=== PATIENT | female | born 1960 | race Caucasian/White ===

== ENCOUNTER 2016-10-04 13:33 | Emergency (ER) | payer BC ==
[2016-10-04] MEDS ORDERED: Famotidine IV* 10 MG/ML 2 ML (20 mg) IV ONE (14:13)
[2016-10-04] MEDS ORDERED: LORazepam INJ* 2 MG/ML 1 ML VIAL IV PUSH ONE (14:14)
[2016-10-04 14:35] LABS: Hematocrit 45 % (35-47); Hemoglobin 14.9 g/dl (12.0-16.0); Mean Corpuscular HGB Conc 33 g/dl (31-36); Mean Corpuscular Hemoglobin 30 pg (27-31); Mean Corpuscular Volume 91 fL (80-97); Mean Platelet Volume 7 um3 (7.4-10.4); Red Blood Count 4.99 10^6/ul (4.0-5.4); Red Cell Distribution Width 14 % (10.5-15); White Blood Count 8.5 10^3/ul (3.5-10.8)
--- NOTE | 2016-10-04 14:39 | RAD ---
INDICATION: Chest pain COMPARISON: March 01, 2007 TECHNIQUE: An AP portable view obtained at 1425 hours is submitted. FINDINGS: Bones/Soft Tissues: There are no acute bony findings. Cardiomediastinal: The cardiomediastinal silhouette is normal. Lungs: There are no infiltrates. Pleura: There are no pleural effusions. Other: None IMPRESSION: NO ACTIVE DISEASE.
[2016-10-04 14:49] LABS: Albumin 4.2 g/dL (3.2-5.2); BUN/Creatinine Ratio 14.6 (8-20); Calcium 9.3 mg/dL (8.6-10.3); EGFR African American 93.8 (>60); EGFR Non-African American 72.9 (>60); Globulin 3.2 g/dL (2-4); Potassium 3.8 mmol/L (3.5-5.0); Total Bilirubin 0.5 mg/dL (0.2-1.0); Total Protein 7.4 g/dL (6.4-8.9)
[2016-10-04 15:02] LABS: TSH (Thyroid Stimulating Horm) 1.45 mcIU/mL (0.34-5.60)
--- NOTE | 2016-10-04 15:45 | ED ---
Andrew Zheng Billy, scribed for Ambrocio Peoples MD on 10/04/16 at 1417 . HPI Chest Pain - HPI Summary HPI Summary: Patient is a 55 year-old female coming to [facility] presenting with constant midsternal chest pressure since this morning. Severity 310. She also reports chills, rapid palpitations, lightheadedness, headache, general weakness, and SOB. She also reports a cough, which she states is related to prior sinus congestion. She denies any nausea, vomiting, or diaphoresis. She states that she has had anxiety and life stressors since [place]-time. - History of Current Complaint Chief Complaint: EDChestPainROMI Time Seen by Provider: 10/04/16 14:00 Hx Obtained From: Patient Onset/Duration: Started Hours Ago, Still Present Timing: Constant Initial Severity: Moderate Current Severity: Moderate Pain Intensity: 3 Pain Scale Used: 0-10 Numeric Chest Pain Location: Mid Sternal Chest Pain Radiates: No Character: Pressure/Squeezing Aggravating Factor(s): Nothing Alleviating Factor(s): Nothing Associated Signs and Symptoms: Positive: Anxiety, Recent Stress, Headaches, Weakness, Shortness of Breath, Chills, Lightheadedness, Palpitations, Cough, Sinus Discomfrot. Negative: Diaphoresis, Nausea, Vomiting - Allergy/Home Medications Allergies/Adverse Reactions: Allergies Allergy/AdvReac Type Severity Reaction Status Date / Time Doxycycline Allergy Rash Verified 10/04/16 14:55 Home Medications: Home Medications Escitalopram Oxalate [Lexapro] 10 mg PO 10/04/16 [History] PMH/Surg Hx/FS Hx/Imm Hx Infectious Disease History: No Infectious Disease History: Denies: Traveled Outside the [place] in Last 30 Days Review of Systems Positive: Chills. Negative: Skin Diaphoresis Positive: Other - sinus congestion Positive: Palpitations, Chest Pain Positive: Shortness Of Breath, Cough Negative: Vomiting, Nausea Neurological: Other - lightheaded Positive: Headache, Weakness Positive: Anxious, Other - stress All Other Systems Reviewed And Are Negative: Yes Physical Exam - Summary Physical Exam Summary: VITAL SIGNS: Reviewed. GENERAL: Patient is a well developed and nourished anxious female. Patient is not in any acute respiratory distress. HEAD AND FACE: No signs of trauma. No ecchymosis, hematomas or skull depressions. No sinus tenderness. EYES: PERRLA, EOMI x 2, No injected conjunctiva, no nystagmus. EARS: Hearing grossly intact. Ear canals and tympanic membranes are within normal limits. MOUTH: Oropharynx within normal limits. NECK: Supple, trachea is midline, no adenopathy, no JVD, no carotid bruit, no c- spine tenderness, neck with full ROM. CHEST: Symmetric, no tenderness at palpation LUNGS: Clear to auscultation bilaterally. No wheezing or crackles. CVS: Regular rate and rhythm, S1 and S2 present, no murmurs or gallops appreciated. ABDOMEN: Soft, non-tender. No signs of distention. No rebound no guarding, and no masses palpated. Bowel sounds are normal. EXTREMITIES: FROM in all major joints, no edema, no cyanosis or clubbing. NEURO: Alert and oriented x 3. No acute neurological deficits. Speech is normal and follows commands. SKIN: Dry and warm Triage Information Reviewed: Yes Vital Signs On Initial Exam: Initial Vitals Temp Pulse Resp BP Pulse Ox 98.8 F 121 20 187/102 100 10/04/16 13:38 10/04/16 13:38 10/04/16 13:38 10/04/16 13:38 10/04/16 13:38 Vital Signs Reviewed: Yes Diagnostics - Vital Signs Vital Signs Temp Pulse Resp BP Pulse Ox 10/04/16 13:38 98.8 F 121 20 187/102 100 - Laboratory Result Diagrams: 10/04/16 14:03 10/04/16 14:03 Lab Statement: Any lab studies that have been ordered have been reviewed, and results considered in the medical decision making process. - Radiology CXR Xray Interpretation: No Acute Changes Radiology Interpretation Completed By: Radiologist - EKG 1343 EKG Interpretation: NSR 97 bpm, no ST elevations, Q-wave in III and aVF Re-Evaluation - Re-Evaluation First Eval Re-Evaluation Time: 15:42 Change: Improved Chest Pain Course/Dx - Course Assessment/Plan: Patient is a 55 year-old female coming to [facility] presenting with constant midsternal chest pressure since this morning. Severity 3/10. She also reports chills, rapid palpitations, lightheadedness, headache, general weakness, and SOB. She also reports a cough, which she states is related to prior sinus congestion. She denies any nausea, vomiting, or diaphoresis. She states that she has had anxiety and life stressors since [place]-time. She also reports she has reflux today. Initially she was given Pepcid for reflux and Ativan for anxiety. Blood work is also found to be wnl. D dimer was less than 200 therefore I have no suspicion for a DVT. Troponin is 0.00. Since patient has no comorbidities troponin is 0.0 I have no suspicion for ACS. CXR shows no acute findings. Because the patient has no significant comorbidities and no family history of cardiovascular disease the patient will be discharged home with follow up of PMD. I discussed all the findings and test results with the patient. Patient was instructed to return to the emergency room immediately if any of the symptoms return or worsens. Patient understands and agrees. Plan of care was discussed with the patient and patient understands and agrees. All questions were answered at patient satisfaction. There were no further complaints or concerns. PE before discharge: CVS: S1 and S2 present. No murmurs appreciated. Abdominal exam before discharge: Soft, non-tender. No signs of distention. No rebound no guarding, and no masses palpated. Bowel sounds are normal. Patient is alert and oriented x 3. Patient is hemodynamically stable. - Chest Pain Differential Diagnosis/HQI/PQRI: ACS, Angina, CHF, Chest Wall, GI Disease, Other : - Anxiety - Diagnoses Provider Diagnoses: Chest pain, Anxiety Discharge - Discharge Plan Condition: Stable Disposition: HOME Prescriptions: hydrOXYzine HCL TAB* [Atarax TAB*] 25 mg PO TID PRN #30 tab PRN Reason: Anxiety The documentation as recorded by the Andrew santacruz Billy accurately reflects the service I personally performed and the decisions made by me, Ambrocio Peoples MD.
[2016-10-04 16:02] VITALS: BP 143/87
== END 2016-10-04 16:02 | disposition home or self-care (01) ==
LOC: ED 13:33
DX: R07.9 Chest pain, unspecified (principal); R00.2 Palpitations; R06.02 Shortness of breath; R05 Cough; R51 Headache; F41.9 Anxiety disorder, unspecified
CPT/HCPCS: 36415; 71010; 80053; 82553; 83880; 84443; 84484; 85025; 85379; 93005; 96365; 96375; 99282; J2060

== ENCOUNTER 2017-08-19 09:00 | Emergency (ER) | payer SELFPAY ==
[2017-08-19 09:12] VITALS: BP 138/84
[2017-08-19] MEDS ORDERED: Albuterol/Ipratropium NEB.SOL* Albuterol 2.5 MG/Ipratropium 0.5 MG 3 ML INH ONE (09:50)
--- NOTE | 2017-08-19 10:28 | RAD ---
INDICATION: Cough, chest pain, shortness of breath. Elevated BP. COMPARISON: October 04, 2016 through February 14, 2003 TECHNIQUE: Dual energy PA and routine lateral views of the chest were obtained. REPORT: Indeterminant 1.3 cm maximum dimension irregularly margined density at the LEFT lower lung zone new compared with the prior exams. Elevated lung volumes and both diffuse mild prominence of the interstitial markings and patchy rarefaction of the mid to upper lung zone interstitial markings. Negative for pleural effusion or pneumothorax. Negative for cardiomegaly. Unremarkable central pulmonary vasculature. Moderately tortuous descending thoracic aorta. RIGHT epicardial fat pad noted. IMPRESSION: Stigmata of obstructive lung disease. No acute pulmonary or cardiac process evident. Indeterminant radiographic nodule at the LEFT lung base. Consider CT with contrast if clinically feasible for further assessment.
[2017-08-19] MEDS ORDERED: predniSONE TAB* 20 MG PO ONE (10:36)
--- NOTE | 2017-08-19 10:44 | UC ---
Pritesh Zheng Benjamin, scribed for Ambrocio Reyes MD on 08/19/17 at 0953 . Respiratory Complaint HPI - HPI Summary HPI Summary: 56yo female c/o coughing for 3 days. Cough sometimes brings up yellow/green sputum. Pt reports labored breathing, wheezing, and feels tired and fatigued. Also have runny nose and some mild neck and back muscle aches, but denies any fever. No hx of COPD. FHX of DM and asthma. Pt is a smoker. - History of Current Complaint Chief Complaint: UCGeneralIllness Stated Complaint: COUGH Time Seen by Provider: 08/19/17 09:33 Hx Obtained From: Patient Onset/Duration: Sudden Onset, Lasting Days - 3 days, Still Present Timing: Constant Severity Initially: Mild Severity Currently: Mild Pain Intensity: 0 Pain Scale Used: 0-10 Numeric Character: Cough: Productive, Sputum Description: - yellow/green Alleviating Factors: Nothing Associated Signs And Symptoms: Positive: Wheezing. Negative: Fever - Allergies/Home Medications Allergies/Adverse Reactions: Allergies Allergy/AdvReac Type Severity Reaction Status Date / Time Doxycycline Allergy Rash Verified 08/19/17 09:03 Home Medications: Home Medications Atenolol TAB* [Tenormin TAB* 50 MG] 50 mg PO DAILY 08/19/17 [History Confirmed 08/19/17] Pseudoephedrine-Guaifenesin [Mucinex D 60-600 mg] 1 tab PO 08/19/17 [History] PMH/Surg Hx/FS Hx/Imm Hx Cardiovascular History: Hypertension - Surgical History Surgical History: None - Family History Known Family History: Positive: Diabetes, Respiratory Disease - asthma - Social History Occupation: Employed Full-time Alcohol Use: Occasionally Substance Use Type: None Smoking Status (MU): Light Every Day Tobacco Smoker Amount Used/How Often: 6cig/ day - Immunization History Most Recent Influenza Vaccination: 2017 Review of Systems Constitutional: Fatigue Skin: Negative Eyes: Negative ENT: Nasal Discharge Respiratory: Shortness Of Breath, Cough Cardiovascular: Negative Gastrointestinal: Negative Genitourinary: Negative Motor: Negative Neurovascular: Negative Musculoskeletal: Negative Neurological: Negative Psychological: Negative All Other Systems Reviewed And Are Negative: Yes Physical Exam Triage Information Reviewed: Yes Appearance: Well-Appearing, No Pain Distress Vital Signs: Initial Vital Signs Temp 98.4 F 08/19/17 09:05 Pulse 73 08/19/17 09:05 Resp 16 08/19/17 09:05 BP 138/84 08/19/17 09:05 Pulse Ox 100 08/19/17 09:05 Vital Signs Reviewed: Yes ENT: Positive: Nasal congestion, TMs normal Neck: Positive: Supple Respiratory: Positive: Wheezing - right upper lobe Cardiovascular: Positive: RRR, No Murmur Abdomen Description: Positive: Nontender Musculoskeletal: Positive: Strength Intact, ROM Intact Neurological Exam: Normal Psychological Exam: Normal Skin Exam: Normal UC Diagnostic Evaluation - Laboratory O2 Sat by Pulse Oximetry: 100 - Radiology Xray Interpretation: No Acute Changes - IMPRESSION: Stigmata of obstructive lung disease. No acute pulmonary or cardiac process Radiology Interpretation Completed By: Radiologist - ED physician has reviewed this radiology report and agrees. Respiratory Course/Dx - Course Course Of Treatment: Reviewed pts medication and allergy lists. High Blood pressure noted. Discussed pt case with DR. Saenz(pt's PCP) at [address] Saenz was notified of the new lung nodule in left lower lung, and she is going to have the patient follow up with her in the next week. The patient was notified of the new lung nodule and the need for follow up as well to be sure it is not lung cancer. - Differential Dx/Diagnosis Provider Diagnoses: copd exacerbation. URI. Lung nodule Discharge - Discharge Plan Condition: Good Disposition: HOME Prescriptions: Albuterol HFA INHALER* [Ventolin HFA Inhaler*] 1 - 2 puff INH Q4H PRN #1 mdi PRN Reason: Cough predniSONE TAB* [Deltasone TAB*] 40 mg PO DAILY #8 tab Patient Education Materials: COPD (Chronic Obstructive Pulmonary Disease) (ED) , Hypertension (ED), Pulmonary Nodules (ED) Referrals: Sary Ledezma MD [Primary Care Provider] - 2 Days The documentation as recorded by the Pritesh santacruz Benjamin accurately reflects the service I personally performed and the decisions made by , Ambrocio Reyes MD.
== END 2017-08-19 11:01 | disposition home or self-care (01) ==
LOC: UCEAST 09:00
DX: J44.1 Chronic obstructive pulmonary disease with (acute) exacerbation (principal); J06.9 Acute upper respiratory infection, unspecified; R91.1 Solitary pulmonary nodule; Z72.0 Tobacco use
CPT/HCPCS: 71020; 87502; 99212; A9270-GY; G0463; J7512

== ENCOUNTER 2021-12-11 16:08 | Inpatient (IN) ==
[2021-12-11] MEDS ORDERED: NS 0.9% 1000 ml BAG 1,000 ML IV ONE (16:36)
[2021-12-11 16:54] LABS: ABS Eosinophils 0.1 10^3/ul (0-0.6); ABS Lymphocytes 2.8 10^3/ul (1.0-4.8); ABS Monocytes 0.5 10^3/ul (0-0.8); ABS Neutrophils 2.8 10^3/ul (1.5-7.7); Hematocrit 42 % (35-47); Hemoglobin 13.9 g/dL (12.0-16.0); Lymphocyte % 45.2 %; Mean Corpuscular HGB Conc 34 g/dL (31-36); Mean Corpuscular Hemoglobin 30 pg (27-31); Mean Corpuscular Volume 91 fL (80-97); Mean Platelet Volume 7.2 fL (7.4-10.4); Nucleated Red Blood Cells % 0.2; Platelet Count 232 10^3/uL (150-450); Red Blood Count 4.58 10^6 /uL (3.70-4.87); Red Cell Distribution Width 13 % (10-15); White Blood Count 6.3 10^3/uL (3.5-10.8)
[2021-12-11 17:10] LABS: Activated Partial Thrombo Time 31.3 seconds (26.0-38.0); INR 1.05 (0.86-1.15)
[2021-12-11] MEDS: levETIRAcetam 1000MG IVPREMIX 1,000 MG/100 ML BAG IVPB ONE ×2 (17:30→20:41)
[2021-12-11 18:06] LABS: Albumin 4.5 g/dL (3.2-5.2); Calcium 9.4 mg/dL (8.6-10.3); Globulin 2.2 g/dL (2-4); HDL Cholesterol 64.1 mg/dL; Potassium 3.8 mmol/L (3.5-5.0); Total Bilirubin 0.6 mg/dL (0.2-1.0); Total Protein 6.7 g/dL (6.4-8.9); eGFR CKD-EPI 88.8 (>60)
[2021-12-11 18:23] LABS: High Sensitivity Troponin 1 Hr 3 pg/mL (<15)
[2021-12-11] MEDS ORDERED: Gadoteridol (CONTRAST) 279.3 MG/ML 10 ML IV ONE (19:03)
[2021-12-11] MEDS: Heparin 5000 UNITS/ML 1 mL VIAL SUBCUT SCH (22:14)
[2021-12-11] MEDS ORDERED: Dexamethasone IV 10 MG in NS 0.9% 50 ML 50 ML IVPB ONE (23:00)
[2021-12-12] MEDS: Heparin 5000 UNITS/ML 1 mL VIAL SUBCUT SCH ×2 (06:08→13:18)
[2021-12-12] MEDS: Dexamethasone IV 4 MG/ML VIAL 1 ml VIAL IV SLOW PU SCH ×4 (06:10→23:54)
[2021-12-12] MEDS: levETIRAcetam 500 MG IVPREMIX 500 MG/100 ML BAG IV SCH ×2 (10:49→21:35)
[2021-12-12] MEDS ORDERED: Iohexol 300 (CONTRAST) 10 ML SDV IV ONE (12:11)
[2021-12-12] MEDS ORDERED: Heparin 5000 UNITS/ML 1 mL VIAL SUBCUT SCH (19:13)
[2021-12-13] MEDS: Dexamethasone IV 4 MG/ML VIAL 1 ml VIAL IV SLOW PU SCH ×4 (05:41→23:53)
[2021-12-13 05:45] LABS: ABS Lymphocytes 1.2 10^3/ul (1.0-4.8); ABS Monocytes 0.3 10^3/ul (0-0.8); ABS Neutrophils 8.8 10^3/ul (1.5-7.7); Hematocrit 38 % (35-47); Hemoglobin 13.3 g/dL (12.0-16.0); Lymphocyte % 11.7 %; Mean Corpuscular HGB Conc 35 g/dL (31-36); Mean Corpuscular Hemoglobin 31 pg (27-31); Mean Corpuscular Volume 90 fL (80-97); Mean Platelet Volume 7.7 fL (7.4-10.4); Platelet Count 241 10^3/uL (150-450); Red Blood Count 4.25 10^6 /uL (3.70-4.87); Red Cell Distribution Width 13 % (10-15); White Blood Count 10.3 10^3/uL (3.5-10.8)
[2021-12-13 06:28] LABS: Calcium 9.1 mg/dL (8.6-10.3); Magnesium 2.1 mg/dL (1.9-2.7); Potassium 4.1 mmol/L (3.5-5.0); eGFR CKD-EPI 97.9 (>60)
[2021-12-13] MEDS ORDERED: Thrombin 5,000 UNITS 1 APPLIC KIT - topical use - TOPICAL ONE ×3 (08:00→12:45)
[2021-12-13] MEDS ORDERED: Lidocaine 1.5% EPI 1:200,000 30 ML SDV ONE (08:00)
[2021-12-13] MEDS ORDERED: Thrombin 5,000 UNITS(BOVINE) for Ultrasound Guided Pseudoaneursym ONE (08:01)
[2021-12-13] MEDS ORDERED: Gelfoam Sponge SIZE 100 SPONGE ONE (08:02)
[2021-12-13] MEDS ORDERED: fentaNYL 250 mcg/5 ml 50 MCG/ML 5 ml VIAL (250 MCG) ONE (08:51)
[2021-12-13] MEDS ORDERED: Ondansetron 4 mg VIAL 2 MG/ML 2 ml VIAL ONE ×2 (08:51→14:18)
[2021-12-13] MEDS ORDERED: Propofol 10 MG/ML 20 ML BTL ONE ×3 (08:51→14:15)
[2021-12-13] MEDS ORDERED: Rocuronium 50 mg VIAL 10 mg/ml 5 ml VIAL (50 mg) ONE ×4 (08:51→12:14)
[2021-12-13] MEDS ORDERED: Lidocaine 2% PF 5 ML VIAL ONE (08:51)
[2021-12-13] MEDS ORDERED: Midazolam 2 mg/2 ml VIAL 1 mg/ml 2 ml VIAL (2 mg) ONE (08:51)
[2021-12-13] MEDS ORDERED: Esmolol 10 MG/ML 10 ML (100 mg) ONE (08:56)
[2021-12-13] MEDS: levETIRAcetam 500 MG IVPREMIX 500 MG/100 ML BAG IV SCH ×3 (09:06→21:10)
[2021-12-13] MEDS ORDERED: ceFAZolin 2 GM in NS PREMIX 2 GM/100 ML BAG IVPB ONE (09:39)
[2021-12-13] MEDS ORDERED: Phenylephrine IV 10 MG/ML 1 ml VIAL ONE (09:44)
[2021-12-13] MEDS ORDERED: Mannitol 25% (12.5 GM) 50 ML 12.5 GM/50 ML VIAL ONE (10:00)
[2021-12-13] MEDS ORDERED: Dexamethasone IV 4 MG/ML VIAL 1 ml VIAL ONE (10:37)
[2021-12-13] MEDS ORDERED: Glycopyrrolate IV 0.2 MG/ML 1 ML VIAL ONE (11:12)
[2021-12-13] MEDS ORDERED: fentaNYL 100 mcg/2 ml 50 MCG/ML VIAL IV PRN (11:34)
[2021-12-13] MEDS ORDERED: Naloxone 0.4 mg VIAL 0.4 mg/ml 1 ml VIAL IV PRN (11:34)
[2021-12-13] MEDS ORDERED: DiMENhydriNATE IV 50 mg/ml 1 ml VIAL IV PUSH PRN (11:34)
[2021-12-13 12:19] LABS: PCO2 Arterial 36 mmHg (35-45); PO2 Arterial 151 mmHg (80-100)
[2021-12-13] MEDS ORDERED: fentaNYL 100 mcg/2 ml 50 MCG/ML VIAL ONE (13:41)
[2021-12-13] MEDS ORDERED: Acetaminophen IV 1 GM/100ML 100 ML IV ONE (14:19)
[2021-12-13] MEDS ORDERED: Sugammadex 500 MG/5 ML 5 ml VIAL IV PUSH ONE (14:39)
[2021-12-13] MEDS ORDERED: EPHEDrine (Pressors) 50 MG/ML VIAL ONE (14:56)
[2021-12-13] MEDS ORDERED: Labetalol IV 5 MG/ML 20 ml VIAL IV PUSH PRN (16:59)
[2021-12-14] MEDS: Dexamethasone IV 4 MG/ML VIAL 1 ml VIAL IV SLOW PU SCH ×3 (06:00→17:11)
[2021-12-14 06:17] LABS: ABS Monocytes 0.6 10^3/ul (0-0.8); Hematocrit 34 % (35-47); Hemoglobin 11.8 g/dL (12.0-16.0); Lymphocyte % 7.9 %; Mean Corpuscular HGB Conc 34 g/dL (31-36); Mean Corpuscular Hemoglobin 31 pg (27-31); Mean Corpuscular Volume 90 fL (80-97); Mean Platelet Volume 7.5 fL (7.4-10.4); Platelet Count 205 10^3/uL (150-450); Red Blood Count 3.82 10^6 /uL (3.70-4.87); Red Cell Distribution Width 13 % (10-15); White Blood Count 12.6 10^3/uL (3.5-10.8)
[2021-12-14 07:14] LABS: Calcium 8.6 mg/dL (8.6-10.3); Potassium 4.2 mmol/L (3.5-5.0); eGFR CKD-EPI 100.6 (>60)
[2021-12-14] MEDS: levETIRAcetam 500 MG IVPREMIX 500 MG/100 ML BAG IV SCH (08:00)
[2021-12-14 08:22] LABS: High Sensitivity Troponin 1 Hr 3 pg/mL (<15)
[2021-12-14 09:31] LABS: C Reactive Protein 13.52 mg/L (<8.01)
[2021-12-14] MEDS: Amoxicillin/Clavul 875/125 TAB (Augmentin 875 tab) PO SCH ×2 (11:14→20:44)
[2021-12-14] MEDS: Fluticasone NASAL SPRAY 50MCG 16 gm SPRAY BTL BOTH NARES SCH (13:05)
[2021-12-14] MEDS: Enoxaparin 40 MG/0.4 ML SYR SUBCUT SCH (15:56)
[2021-12-15] MEDS: Dexamethasone IV 4 MG/ML VIAL 1 ml VIAL IV SLOW PU SCH ×3 (00:22→11:47)
[2021-12-15 05:43] LABS: Hematocrit 33 % (35-47); Hemoglobin 11.5 g/dL (12.0-16.0); Mean Corpuscular HGB Conc 35 g/dL (31-36); Mean Corpuscular Hemoglobin 31 pg (27-31); Mean Corpuscular Volume 91 fL (80-97); Mean Platelet Volume 8.2 fL (7.4-10.4); Platelet Count 189 10^3/uL (150-450); Red Blood Count 3.68 10^6 /uL (3.70-4.87); Red Cell Distribution Width 13 % (10-15); White Blood Count 8.9 10^3/uL (3.5-10.8)
[2021-12-15 06:12] LABS: Calcium 8.3 mg/dL (8.6-10.3); Potassium 4.2 mmol/L (3.5-5.0); eGFR CKD-EPI 102.1 (>60)
[2021-12-15] MEDS: Amoxicillin/Clavul 875/125 TAB (Augmentin 875 tab) PO SCH ×2 (10:12→20:21)
[2021-12-15] MEDS: Fluticasone NASAL SPRAY 50MCG 16 gm SPRAY BTL BOTH NARES SCH (10:12)
[2021-12-15] MEDS: Enoxaparin 40 MG/0.4 ML SYR SUBCUT SCH (14:26)
[2021-12-15] MEDS ORDERED: Ondansetron 4 mg VIAL 2 MG/ML 2 ml VIAL IV PRN (20:13)
[2021-12-15] MEDS ORDERED: Ondansetron 4 mg VIAL 2 MG/ML 2 ml VIAL ONE (20:19)
[2021-12-16 07:51] LABS: ABS Lymphocytes 1.6 10^3/ul (1.0-4.8); ABS Monocytes 0.6 10^3/ul (0-0.8); ABS Neutrophils 5.1 10^3/ul (1.5-7.7); Hematocrit 37 % (35-47); Hemoglobin 12.6 g/dL (12.0-16.0); Lymphocyte % 21.7 %; Mean Corpuscular HGB Conc 34 g/dL (31-36); Mean Corpuscular Hemoglobin 31 pg (27-31); Mean Corpuscular Volume 91 fL (80-97); Mean Platelet Volume 7.7 fL (7.4-10.4); Platelet Count 213 10^3/uL (150-450); Red Blood Count 4.06 10^6 /uL (3.70-4.87); Red Cell Distribution Width 14 % (10-15); White Blood Count 7.3 10^3/uL (3.5-10.8)
[2021-12-16 08:06] LABS: Calcium 8.7 mg/dL (8.6-10.3); Potassium 4.5 mmol/L (3.5-5.0)
[2021-12-16] MEDS: Fluticasone NASAL SPRAY 50MCG 16 gm SPRAY BTL BOTH NARES SCH (08:29)
[2021-12-16] MEDS: Amoxicillin/Clavul 875/125 TAB (Augmentin 875 tab) PO SCH ×2 (09:28→20:56)
[2021-12-16] MEDS: Polyethylene Glycol 3350 17 GM PACKET PO PRN (14:18)
[2021-12-16] MEDS: Enoxaparin 40 MG/0.4 ML SYR SUBCUT SCH (14:19)
[2021-12-16] MEDS ORDERED: Lorazepam PYXIS KEY ONE (21:30)
[2021-12-16] MEDS ORDERED: LORazepam 2 mg VIAL 1 ml ONE (21:30)
[2021-12-16] MEDS ORDERED: Lorazepam PYXIS KEY PRN (21:51)
[2021-12-16] MEDS ORDERED: LORazepam 2 mg VIAL 1 ml IV PUSH ONE (22:00)
[2021-12-17] MEDS: Polyethylene Glycol 3350 17 GM PACKET PO PRN (08:36)
[2021-12-17] MEDS: Amoxicillin/Clavul 875/125 TAB (Augmentin 875 tab) PO SCH ×2 (08:38→22:13)
[2021-12-17] MEDS: Fluticasone NASAL SPRAY 50MCG 16 gm SPRAY BTL BOTH NARES SCH (08:40)
[2021-12-17] MEDS: Enoxaparin 40 MG/0.4 ML SYR SUBCUT SCH (14:30)
[2021-12-18] MEDS: Amoxicillin/Clavul 875/125 TAB (Augmentin 875 tab) PO SCH ×2 (09:38→20:10)
[2021-12-18] MEDS: Fluticasone NASAL SPRAY 50MCG 16 gm SPRAY BTL BOTH NARES SCH (09:40)
[2021-12-18] MEDS: Polyethylene Glycol 3350 17 GM PACKET PO PRN (09:40)
[2021-12-18] MEDS: Enoxaparin 40 MG/0.4 ML SYR SUBCUT SCH (14:20)
[2021-12-18 14:31] LABS: HIV 4th Generation Nonreactive (Nonreactive)
[2021-12-18] MEDS: Docusate LIQ 100 MG/10 ML UDC PO SCH (20:10)
[2021-12-18] MEDS: Senna TAB 8.6 mg TAB PO SCH (20:10)
[2021-12-19 06:43] LABS: ABS Lymphocytes 1.4 10^3/ul (1.0-4.8); ABS Monocytes 0.7 10^3/ul (0-0.8); ABS Neutrophils 5.4 10^3/ul (1.5-7.7); Hematocrit 38 % (35-47); Hemoglobin 13.2 g/dL (12.0-16.0); Mean Corpuscular HGB Conc 35 g/dL (31-36); Mean Corpuscular Hemoglobin 31 pg (27-31); Mean Corpuscular Volume 90 fL (80-97); Mean Platelet Volume 7.3 fL (7.4-10.4); Platelet Count 257 10^3/uL (150-450); Red Blood Count 4.26 10^6 /uL (3.70-4.87); Red Cell Distribution Width 13 % (10-15); White Blood Count 7.6 10^3/uL (3.5-10.8)
[2021-12-19 07:01] LABS: Calcium 8.7 mg/dL (8.6-10.3); Potassium 4.2 mmol/L (3.5-5.0); eGFR CKD-EPI 105.1 (>60)
[2021-12-19] MEDS ORDERED: Magnesium Hydroxide LIQ 30 ML UDC PO PRN (09:04)
[2021-12-19] MEDS: Polyethylene Glycol 3350 17 GM PACKET PO PRN (09:25)
[2021-12-19] MEDS: Fluticasone NASAL SPRAY 50MCG 16 gm SPRAY BTL BOTH NARES SCH (09:29)
[2021-12-19 10:05] LABS: Hepatitis B Surface Antigen Nonreactive (Nonreactive)
[2021-12-19 10:22] LABS: Hepatitis B Surface Ab Not Immune (Immune)
[2021-12-19] MEDS: Enoxaparin 40 MG/0.4 ML SYR SUBCUT SCH (13:23)
[2021-12-19] MEDS: Senna TAB 8.6 mg TAB PO SCH (20:25)
[2021-12-19] MEDS: Docusate LIQ 100 MG/10 ML UDC PO SCH (20:25)
[2021-12-20] MEDS: Fluticasone NASAL SPRAY 50MCG 16 gm SPRAY BTL BOTH NARES SCH (08:03)
[2021-12-20] MEDS: Docusate LIQ 100 MG/10 ML UDC PO SCH (21:39)
[2021-12-20] MEDS: Senna TAB 8.6 mg TAB PO SCH (21:40)
[2021-12-21 07:28] LABS: INR 1.04 (0.86-1.15)
[2021-12-21] MEDS ORDERED: Midazolam 2 mg/2 ml VIAL 1 mg/ml 2 ml VIAL (2 mg) ONE (07:35)
[2021-12-21] MEDS ORDERED: fentaNYL 100 mcg/2 ml 50 MCG/ML VIAL ONE (07:36)
[2021-12-21 10:39] LABS: Body Fluid Source Cerebral Spinal
[2021-12-21 11:04] LABS: CSF Glucose 60 mg/dL (40-70)
[2021-12-21] MEDS: Fluticasone NASAL SPRAY 50MCG 16 gm SPRAY BTL BOTH NARES SCH (11:51)
[2021-12-21 14:00] LABS: Body Fluid Appearance Clear; Body Fluid Color Colorless; Body Fluid WBC 1 /mcL; CSF Tube # 4
[2021-12-21 15:03] LABS: Body Fluid Mono 20 %; Body Fluid Total Cells Counted 20
[2021-12-21] MEDS: Docusate LIQ 100 MG/10 ML UDC PO SCH (21:38)
[2021-12-21] MEDS: Enoxaparin 40 MG/0.4 ML SYR SUBCUT SCH (21:39)
[2021-12-21] MEDS: Senna TAB 8.6 mg TAB PO SCH (21:41)
[2021-12-22] MEDS: Fluticasone NASAL SPRAY 50MCG 16 gm SPRAY BTL BOTH NARES SCH (07:51)
[2021-12-22] MEDS: Senna TAB 8.6 mg TAB PO SCH (21:02)
[2021-12-22] MEDS: Enoxaparin 40 MG/0.4 ML SYR SUBCUT SCH (21:03)
[2021-12-22] MEDS: Docusate LIQ 100 MG/10 ML UDC PO SCH (21:04)
[2021-12-23 08:57] LABS: Lactate Dehydrogenase, BF 17 U/L
[2021-12-23] MEDS: Fluticasone NASAL SPRAY 50MCG 16 gm SPRAY BTL BOTH NARES SCH (09:43)
[2021-12-23] MEDS: HYDROcodone/ACETAMIN 5/325 mg TAB PO PRN (17:52)
[2021-12-23] MEDS: Enoxaparin 40 MG/0.4 ML SYR SUBCUT SCH (21:02)
[2021-12-23] MEDS: Docusate LIQ 100 MG/10 ML UDC PO SCH (21:04)
[2021-12-23] MEDS: Senna TAB 8.6 mg TAB PO SCH (21:04)
[2021-12-24] MEDS: Polyethylene Glycol 3350 17 GM PACKET PO PRN (09:04)
[2021-12-24] MEDS: Fluticasone NASAL SPRAY 50MCG 16 gm SPRAY BTL BOTH NARES SCH (09:06)
[2021-12-24] MEDS: HYDROcodone/ACETAMIN 5/325 mg TAB PO PRN (19:59)
[2021-12-24] MEDS: Docusate LIQ 100 MG/10 ML UDC PO SCH (22:06)
[2021-12-24] MEDS: Enoxaparin 40 MG/0.4 ML SYR SUBCUT SCH (22:07)
[2021-12-24] MEDS: Senna TAB 8.6 mg TAB PO SCH (22:08)
[2021-12-25] MEDS: Fluticasone NASAL SPRAY 50MCG 16 gm SPRAY BTL BOTH NARES SCH (10:06)
[2021-12-25] MEDS ORDERED: Iohexol 300 (CONTRAST) 10 ML SDV IV ONE (15:39)
[2021-12-25] MEDS: Docusate LIQ 100 MG/10 ML UDC PO SCH (22:09)
[2021-12-25] MEDS: Senna TAB 8.6 mg TAB PO SCH (22:10)
[2021-12-25] MEDS: Enoxaparin 40 MG/0.4 ML SYR SUBCUT SCH (22:10)
[2021-12-26] MEDS: Fluticasone NASAL SPRAY 50MCG 16 gm SPRAY BTL BOTH NARES SCH (09:35)
[2021-12-26 15:27] VITALS: BP 135/87
[2021-12-26 15:41] LABS: BLYM Result Summary Negative; BLYM Source Right parietal brain; BLYM Tissue ID S22-2873-2B
[2021-12-27 07:18] LABS: Case Number CR-22-18154
== END 2021-12-26 16:40 | DRG 21 ==
LOC: ED 16:08 → EDHOLD 21:26 → SUATTDRO 21:26 → SSU 12-12 01:08 → ICU 12-13 16:30 → SSU 12-15 02:25 → PMRU 12-26 16:54 → SSU 12-26 17:04
PROVIDERS: ADMIT Internal Medicine; ATTEND Student in an Organized Health Care Education/Training Program

== ENCOUNTER 2021-12-26 15:52 | Inpatient (IN) ==
[2021-12-26] MEDS ORDERED: Magnesium Hydroxide LIQ 30 ML UDC PO PRN (17:26)
[2021-12-26] MEDS ORDERED: HYDROcodone/ACETAMIN 5/325 mg TAB PO PRN (17:38)
[2021-12-26] MEDS: Enoxaparin 40 MG/0.4 ML SYR SUBCUT SCH (20:48)
[2021-12-26] MEDS: Senna TAB 8.6 mg TAB PO PRN (20:59)
[2021-12-27] MEDS: Enoxaparin 40 MG/0.4 ML SYR SUBCUT SCH (20:46)
[2021-12-27] MEDS: Senna TAB 8.6 mg TAB PO PRN (20:49)
[2021-12-28 06:50] LABS: ABS Eosinophils 0.1 10^3/ul (0-0.6); ABS Lymphocytes 1.9 10^3/ul (1.0-4.8); ABS Monocytes 0.7 10^3/ul (0-0.8); ABS Neutrophils 4.4 10^3/ul (1.5-7.7); Eosinophil % 0.7 %; Hematocrit 35 % (35-47); Hemoglobin 12.5 g/dL (12.0-16.0); Lymphocyte % 27.3 %; Mean Corpuscular HGB Conc 36 g/dL (31-36); Mean Corpuscular Hemoglobin 32 pg (27-31); Mean Corpuscular Volume 90 fL (80-97); Mean Platelet Volume 7.2 fL (7.4-10.4); Platelet Count 254 10^3/uL (150-450); Red Blood Count 3.92 10^6 /uL (3.70-4.87); Red Cell Distribution Width 14 % (10-15); White Blood Count 7.1 10^3/uL (3.5-10.8)
[2021-12-28 07:01] LABS: Albumin 3.4 g/dL (3.2-5.2); Albumin/Globulin Ratio 1.8 (1-3); Calcium 8.5 mg/dL (8.6-10.3); Globulin 1.9 g/dL (2-4); Potassium 3.9 mmol/L (3.5-5.0); Total Bilirubin 0.4 mg/dL (0.2-1.0); Total Protein 5.3 g/dL (6.4-8.9)
[2021-12-28] MEDS: Fluticasone NASAL SPRAY 50MCG 16 gm SPRAY BTL BOTH NARES SCH (09:07)
[2021-12-28] MEDS: Senna TAB 8.6 mg TAB PO PRN (22:33)
[2021-12-28] MEDS: Enoxaparin 40 MG/0.4 ML SYR SUBCUT SCH (22:33)
[2021-12-29] MEDS: Fluticasone NASAL SPRAY 50MCG 16 gm SPRAY BTL BOTH NARES SCH (09:18)
[2021-12-29] MEDS: Enoxaparin 40 MG/0.4 ML SYR SUBCUT SCH (21:45)
[2021-12-30] MEDS: Fluticasone NASAL SPRAY 50MCG 16 gm SPRAY BTL BOTH NARES SCH (08:53)
[2021-12-30] MEDS: Enoxaparin 40 MG/0.4 ML SYR SUBCUT SCH (21:07)
[2021-12-31] MEDS: Fluticasone NASAL SPRAY 50MCG 16 gm SPRAY BTL BOTH NARES SCH (08:46)
[2021-12-31] MEDS: Enoxaparin 40 MG/0.4 ML SYR SUBCUT SCH (20:45)
[2022-01-01] MEDS: Fluticasone NASAL SPRAY 50MCG 16 gm SPRAY BTL BOTH NARES SCH (07:47)
[2022-01-01] MEDS: Enoxaparin 40 MG/0.4 ML SYR SUBCUT SCH (22:16)
[2022-01-02] MEDS: Fluticasone NASAL SPRAY 50MCG 16 gm SPRAY BTL BOTH NARES SCH (08:47)
[2022-01-02] MEDS: Enoxaparin 40 MG/0.4 ML SYR SUBCUT SCH (20:04)
[2022-01-03] MEDS: Fluticasone NASAL SPRAY 50MCG 16 gm SPRAY BTL BOTH NARES SCH (10:18)
[2022-01-04 06:09] LABS: ABS Eosinophils 0.1 10^3/ul (0-0.6); ABS Monocytes 0.3 10^3/ul (0-0.8); ABS Neutrophils 3.5 10^3/ul (1.5-7.7); Eosinophil % 1.5 %; Hematocrit 33 % (35-47); Hemoglobin 11.6 g/dL (12.0-16.0); Lymphocyte % 20.8 %; Mean Corpuscular HGB Conc 35 g/dL (31-36); Mean Corpuscular Hemoglobin 32 pg (27-31); Mean Corpuscular Volume 92 fL (80-97); Mean Platelet Volume 6.7 fL (7.4-10.4); Platelet Count 202 10^3/uL (150-450); Red Blood Count 3.66 10^6 /uL (3.70-4.87); Red Cell Distribution Width 14 % (10-15)
[2022-01-04 06:43] LABS: Albumin 3.5 g/dL (3.2-5.2); Albumin/Globulin Ratio 1.8 (1-3); Calcium 8.7 mg/dL (8.6-10.3); Potassium 4.3 mmol/L (3.5-5.0); Total Bilirubin 0.3 mg/dL (0.2-1.0); Total Protein 5.5 g/dL (6.4-8.9)
[2022-01-04] MEDS: Fluticasone NASAL SPRAY 50MCG 16 gm SPRAY BTL BOTH NARES SCH (09:15)
[2022-01-05] MEDS: Fluticasone NASAL SPRAY 50MCG 16 gm SPRAY BTL BOTH NARES SCH (08:13)
[2022-01-06] MEDS: Fluticasone NASAL SPRAY 50MCG 16 gm SPRAY BTL BOTH NARES SCH (08:00)
[2022-01-06] MEDS ORDERED: Sodium Bicarb 8.4% Vial 50 ML 100 MEQ in D5W 1000 ml BAG 1,000 ML IV SCH (16:00)
[2022-01-07 05:52] VITALS: BP 136/81
[2022-01-07] MEDS: Fluticasone NASAL SPRAY 50MCG 16 gm SPRAY BTL BOTH NARES SCH (09:54)
[2022-01-07] MEDS ORDERED: Sodium Bicarb 8.4% Vial 50 ML 150 MEQ in D5W 1000 ml BAG 850 ML IV SCH (11:00)
[2022-01-07] MEDS ORDERED: NS 0.9% IVPB SCH (18:00)
[2022-01-07] MEDS ORDERED: METHOTREXATE IVPB SCH (18:00)
== END 2022-01-07 17:08 | disposition short-term general hospital (02) | DRG 58 ==
LOC: PMRU 17:11
PROVIDERS: ADMIT Physical Medicine & Rehabilitation; ATTEND Physical Medicine & Rehabilitation

== ENCOUNTER 2022-01-07 11:24 | Inpatient (IN) ==
[2022-01-07] MEDS ORDERED: Magnesium Hydroxide LIQ 30 ML UDC PO PRN (11:43)
[2022-01-07] MEDS ORDERED: HYDROcodone/ACETAMIN 5/325 mg TAB PO PRN (11:43)
[2022-01-07] MEDS ORDERED: Senna TAB 8.6 mg TAB PO PRN (11:43)
[2022-01-07] MEDS ORDERED: PALONOSETRON HCL 0.05 MG/ML (0.25 MG) SYRINGE (0.05 MG/ML) IV ONE (17:30)
[2022-01-07] MEDS ORDERED: METHOTREXATE IV ONE (17:30)
[2022-01-07] MEDS ORDERED: NS 0.9% IV ONE (17:30)
[2022-01-07] MEDS: Sodium Bicarb 8.4% Vial 50 ML 100 MEQ in D5W 1000 ml BAG 1,000 ML IV SCH (18:22)
[2022-01-08] MEDS: Sodium Bicarb 8.4% Vial 50 ML 100 MEQ in D5W 1000 ml BAG 1,000 ML IV SCH ×2 (05:21→18:34)
[2022-01-08 06:13] LABS: ABS Eosinophils 0.1 10^3/ul (0-0.6); ABS Lymphocytes 1.3 10^3/ul (1.0-4.8); ABS Monocytes 0.5 10^3/ul (0-0.8); ABS Neutrophils 4.4 10^3/ul (1.5-7.7); Eosinophil % 0.8 %; Hematocrit 35 % (35-47); Lymphocyte % 20.8 %; Mean Corpuscular HGB Conc 34 g/dL (31-36); Mean Corpuscular Hemoglobin 32 pg (27-31); Mean Corpuscular Volume 93 fL (80-97); Mean Platelet Volume 6.6 fL (7.4-10.4); Platelet Count 260 10^3/uL (150-450); Red Blood Count 3.75 10^6 /uL (3.70-4.87); Red Cell Distribution Width 15 % (10-15); White Blood Count 6.3 10^3/uL (3.5-10.8)
[2022-01-08 06:15] LABS: ABS Eosinophils 0.1 10^3/ul (0-0.6); ABS Lymphocytes 1.3 10^3/ul (1.0-4.8); ABS Monocytes 0.5 10^3/ul (0-0.8); ABS Neutrophils 4.4 10^3/ul (1.5-7.7); Eosinophil % 1.1 %; Hematocrit 34 % (35-47); Lymphocyte % 20.1 %; Mean Corpuscular HGB Conc 35 g/dL (31-36); Mean Corpuscular Hemoglobin 33 pg (27-31); Mean Corpuscular Volume 92 fL (80-97); Mean Platelet Volume 6.6 fL (7.4-10.4); Nucleated Red Blood Cells % 0.1; Platelet Count 258 10^3/uL (150-450); Red Cell Distribution Width 15 % (10-15); White Blood Count 6.2 10^3/uL (3.5-10.8)
[2022-01-08 06:41] LABS: Albumin 3.4 g/dL (3.2-5.2); Albumin/Globulin Ratio 1.5 (1-3); Calcium 8.5 mg/dL (8.6-10.3); Globulin 2.3 g/dL (2-4); Total Bilirubin 0.3 mg/dL (0.2-1.0); Total Protein 5.7 g/dL (6.4-8.9)
[2022-01-08] MEDS: Fluticasone NASAL SPRAY 50MCG 16 gm SPRAY BTL BOTH NARES SCH (09:16)
[2022-01-08 11:17] LABS: Urine Appearance Clear; Urine Bilirubin Negative (Negative); Urine Blood Negative (Negative); Urine Color Straw; Urine Glucose Negative (Negative); Urine Ketones Negative (Negative); Urine Nitrite Negative (Negative); Urine Protein Negative (Negative); Urine Specific Gravity 1.004 (1.002-1.030); Urine Urobilinogen Negative (Negative)
[2022-01-08] MEDS ORDERED: Leucovorin Calcium 25 MG in NS 0.9% 50 ML 50 ML IVPB SCH (18:00)
[2022-01-08] MEDS: Polyethylene Glycol 3350 17 GM PACKET PO SCH (20:50)
[2022-01-09 05:47] LABS: ABS Eosinophils 0.1 10^3/ul (0-0.6); ABS Lymphocytes 1.6 10^3/ul (1.0-4.8); ABS Monocytes 0.4 10^3/ul (0-0.8); Eosinophil % 1.5 %; Hematocrit 38 % (35-47); Hemoglobin 12.8 g/dL (12.0-16.0); Lymphocyte % 25.7 %; Mean Corpuscular HGB Conc 34 g/dL (31-36); Mean Corpuscular Hemoglobin 31 pg (27-31); Mean Corpuscular Volume 93 fL (80-97); Mean Platelet Volume 6.6 fL (7.4-10.4); Platelet Count 293 10^3/uL (150-450); Red Blood Count 4.08 10^6 /uL (3.70-4.87); Red Cell Distribution Width 15 % (10-15)
[2022-01-09] MEDS: Sodium Bicarb 8.4% Vial 50 ML 100 MEQ in D5W 1000 ml BAG 1,000 ML IV SCH ×2 (05:58→19:43)
[2022-01-09 06:17] LABS: Albumin 3.7 g/dL (3.2-5.2); Albumin/Globulin Ratio 1.6 (1-3); Calcium 8.8 mg/dL (8.6-10.3); Globulin 2.3 g/dL (2-4); Potassium 4.1 mmol/L (3.5-5.0); Total Bilirubin 0.4 mg/dL (0.2-1.0); eGFR CKD-EPI 105.1 (>60)
[2022-01-09] MEDS: Polyethylene Glycol 3350 17 GM PACKET PO SCH (10:31)
[2022-01-09] MEDS: Fluticasone NASAL SPRAY 50MCG 16 gm SPRAY BTL BOTH NARES SCH (11:43)
[2022-01-09] MEDS ORDERED: Dexamethasone IV 4 MG/ML VIAL 1 ml VIAL ONE (13:17)
[2022-01-09] MEDS ORDERED: Palonosetron 0.25 MG in Premix IV 0 ML IVPB ONE (13:30)
[2022-01-09] MEDS ORDERED: [UNRECOGNIZED DRUG - MIXTURE] IVPB SCH (13:30)
[2022-01-09] MEDS ORDERED: DEXAMETHASONE IV SLOW PU SCH (13:30)
[2022-01-09] MEDS: Dexamethasone IV 4 MG/ML VIAL 1 ml VIAL IV SLOW PU ONE ×2 (13:30→13:36)
[2022-01-09] MEDS ORDERED: NS 0.9% IVPB SCH (14:00)
[2022-01-09] MEDS ORDERED: METHOTREXATE IVPB SCH (14:00)
[2022-01-09] MEDS ORDERED: Dexamethasone IV 4 MG/ML VIAL 1 ml VIAL IV SLOW PU ONE (14:00)
[2022-01-10 05:18] LABS: Urine Appearance Clear; Urine Bilirubin Negative (Negative); Urine Blood Negative (Negative); Urine Color Yellow; Urine Glucose Negative (Negative); Urine Ketones Negative (Negative); Urine Nitrite Negative (Negative); Urine Protein Negative (Negative); Urine Specific Gravity 1.005 (1.002-1.030); Urine Urobilinogen Negative (Negative)
[2022-01-10] MEDS: Sodium Bicarb 8.4% Vial 50 ML 100 MEQ in D5W 1000 ml BAG 1,000 ML IV SCH ×2 (05:27→11:11)
[2022-01-10 07:26] LABS: ABS Lymphocytes 1.1 10^3/ul (1.0-4.8); ABS Monocytes 0.1 10^3/ul (0-0.8); ABS Neutrophils 6.3 10^3/ul (1.5-7.7); Eosinophil % 0.3 %; Hematocrit 38 % (35-47); Lymphocyte % 14.2 %; Mean Corpuscular HGB Conc 35 g/dL (31-36); Mean Corpuscular Hemoglobin 32 pg (27-31); Mean Corpuscular Volume 92 fL (80-97); Mean Platelet Volume 6.9 fL (7.4-10.4); Platelet Count 306 10^3/uL (150-450); Red Blood Count 4.07 10^6 /uL (3.70-4.87); Red Cell Distribution Width 15 % (10-15); White Blood Count 7.5 10^3/uL (3.5-10.8)
[2022-01-10 07:47] LABS: Albumin 3.8 g/dL (3.2-5.2); Albumin/Globulin Ratio 1.6 (1-3); Globulin 2.4 g/dL (2-4); Potassium 3.4 mmol/L (3.5-5.0); Total Bilirubin 0.9 mg/dL (0.2-1.0); Total Protein 6.2 g/dL (6.4-8.9); eGFR CKD-EPI 103.8 (>60)
[2022-01-10] MEDS: Polyethylene Glycol 3350 17 GM PACKET PO SCH (09:57)
[2022-01-10] MEDS: Fluticasone NASAL SPRAY 50MCG 16 gm SPRAY BTL BOTH NARES SCH (10:09)
[2022-01-10] MEDS: LEUCOVORIN CALCIUM IVPB SCH ×2 (15:43→21:53)
[2022-01-10] MEDS: NS 0.9% IVPB SCH ×2 (15:43→21:53)
[2022-01-10] MEDS ORDERED: diPHENhydraMINE 25 mg TAB PO PRN (21:31)
[2022-01-11] MEDS: Sodium Bicarb 8.4% Vial 50 ML 100 MEQ in D5W 1000 ml BAG 1,000 ML IV SCH ×4 (00:57→17:41)
[2022-01-11] MEDS: LEUCOVORIN CALCIUM IVPB SCH ×4 (03:25→22:53)
[2022-01-11] MEDS: NS 0.9% IVPB SCH ×4 (03:25→22:53)
[2022-01-11 05:44] LABS: ABS Lymphocytes 1.5 10^3/ul (1.0-4.8); ABS Monocytes 0.1 10^3/ul (0-0.8); ABS Neutrophils 4.8 10^3/ul (1.5-7.7); Eosinophil % 0.4 %; Hematocrit 33 % (35-47); Hemoglobin 11.6 g/dL (12.0-16.0); Lymphocyte % 23.4 %; Mean Corpuscular HGB Conc 35 g/dL (31-36); Mean Corpuscular Hemoglobin 32 pg (27-31); Mean Corpuscular Volume 91 fL (80-97); Mean Platelet Volume 6.3 fL (7.4-10.4); Platelet Count 263 10^3/uL (150-450); Red Blood Count 3.61 10^6 /uL (3.70-4.87); Red Cell Distribution Width 15 % (10-15); White Blood Count 6.5 10^3/uL (3.5-10.8)
[2022-01-11] MEDS ORDERED: diPHENhydraMINE IV 50 MG/ML 1 ml VIAL (BENADRYL) IV ONE (06:00)
[2022-01-11 06:18] LABS: Albumin 3.1 g/dL (3.2-5.2); Albumin/Globulin Ratio 1.6 (1-3); Calcium 8.5 mg/dL (8.6-10.3); Potassium 3.9 mmol/L (3.5-5.0); Total Bilirubin 0.7 mg/dL (0.2-1.0); Total Protein 5.1 g/dL (6.4-8.9); eGFR CKD-EPI 66.5 (>60)
[2022-01-11] MEDS ORDERED: diPHENhydraMINE IV 50 MG/ML 1 ml VIAL (BENADRYL) IV PRN (06:30)
[2022-01-11] MEDS ORDERED: Famotidine IV 10 MG/ML 2 ml VIAL (20 mg) IV PRN (06:30)
[2022-01-11] MEDS ORDERED: Meperidine 50 mg/ml SYRINGE 1 ml IV PRN (06:30)
[2022-01-11] MEDS ORDERED: riTUXimab-ABBS 500 MG, riTUXimab-ABBS 200 MG in NS 0.9% 500 ml BAG 280 ML IVPB SCH (06:30)
[2022-01-11] MEDS ORDERED: methylPREDNISolone 125 mg 2 ML VIAL IV PRN (06:30)
[2022-01-11] MEDS: Polyethylene Glycol 3350 17 GM PACKET PO SCH (09:29)
[2022-01-11 09:34] LABS: Urine Appearance Cloudy; Urine Bacteria Absent (Absent); Urine Bilirubin Negative (Negative); Urine Blood 1+ (Negative); Urine Color Straw; Urine Glucose Negative (Negative); Urine Ketones Negative (Negative); Urine Nitrite Negative (Negative); Urine Protein 1+(30 mg/dL) (Negative); Urine Red Blood Cell 3+(>10/hpf) (Absent); Urine Specific Gravity 1.005 (1.002-1.030); Urine Squamous Epithelial Cell Present (Absent); Urine Urobilinogen Negative (Negative); Urine White Blood Cell Trace(0-5/hpf) (Absent)
[2022-01-11] MEDS: Fluticasone NASAL SPRAY 50MCG 16 gm SPRAY BTL BOTH NARES SCH (09:36)
[2022-01-12] MEDS: Sodium Bicarb 8.4% Vial 50 ML 100 MEQ in D5W 1000 ml BAG 1,000 ML IV SCH ×5 (00:19→22:07)
[2022-01-12] MEDS: NS 0.9% IVPB SCH ×4 (03:40→22:08)
[2022-01-12] MEDS: LEUCOVORIN CALCIUM IVPB SCH ×4 (03:40→22:08)
[2022-01-12] MEDS ORDERED: TIXAGEVIMAB IM ONE (08:00)
[2022-01-12] MEDS ORDERED: CILGAVIMAB IM ONE (08:00)
[2022-01-12] MEDS: Fluticasone NASAL SPRAY 50MCG 16 gm SPRAY BTL BOTH NARES SCH (11:16)
[2022-01-12] MEDS: Polyethylene Glycol 3350 17 GM PACKET PO SCH (11:17)
[2022-01-12 20:31] LABS: ABS Lymphocytes 0.9 10^3/ul (1.0-4.8); ABS Monocytes 0.1 10^3/ul (0-0.8); ABS Neutrophils 3.9 10^3/ul (1.5-7.7); Eosinophil % 0.7 %; Hematocrit 32 % (35-47); Lymphocyte % 19.2 %; Mean Corpuscular HGB Conc 35 g/dL (31-36); Mean Corpuscular Hemoglobin 31 pg (27-31); Mean Corpuscular Volume 91 fL (80-97); Mean Platelet Volume 6.4 fL (7.4-10.4); Nucleated Red Blood Cells % 0.1; Platelet Count 263 10^3/uL (150-450); Red Cell Distribution Width 15 % (10-15)
[2022-01-12 20:53] LABS: Albumin 3.3 g/dL (3.2-5.2); Albumin/Globulin Ratio 1.6 (1-3); Calcium 8.7 mg/dL (8.6-10.3); Globulin 2.1 g/dL (2-4); Potassium 3.6 mmol/L (3.5-5.0); Total Bilirubin 0.6 mg/dL (0.2-1.0); Total Protein 5.4 g/dL (6.4-8.9); eGFR CKD-EPI 43.3 (>60)
[2022-01-13] MEDS: NS 0.9% IVPB SCH ×4 (03:48→22:13)
[2022-01-13] MEDS: LEUCOVORIN CALCIUM IVPB SCH ×4 (03:48→22:13)
[2022-01-13] MEDS: Sodium Bicarb 8.4% Vial 50 ML 100 MEQ in D5W 1000 ml BAG 1,000 ML IV SCH ×5 (05:06→19:59)
[2022-01-13 08:01] LABS: ABS Lymphocytes 1.1 10^3/ul (1.0-4.8); ABS Monocytes 0.1 10^3/ul (0-0.8); ABS Neutrophils 3.3 10^3/ul (1.5-7.7); Eosinophil % 0.5 %; Hematocrit 32 % (35-47); Lymphocyte % 24.2 %; Mean Corpuscular HGB Conc 34 g/dL (31-36); Mean Corpuscular Hemoglobin 32 pg (27-31); Mean Corpuscular Volume 92 fL (80-97); Mean Platelet Volume 6.8 fL (7.4-10.4); Platelet Count 257 10^3/uL (150-450); Red Blood Count 3.49 10^6 /uL (3.70-4.87); Red Cell Distribution Width 14 % (10-15); White Blood Count 4.5 10^3/uL (3.5-10.8)
[2022-01-13 08:25] LABS: Albumin 3.2 g/dL (3.2-5.2); Albumin/Globulin Ratio 1.5 (1-3); Globulin 2.2 g/dL (2-4); Potassium 3.4 mmol/L (3.5-5.0); Total Bilirubin 0.6 mg/dL (0.2-1.0); Total Protein 5.4 g/dL (6.4-8.9); eGFR CKD-EPI 52.7 (>60)
[2022-01-13] MEDS: Polyethylene Glycol 3350 17 GM PACKET PO SCH (08:49)
[2022-01-13] MEDS: Fluticasone NASAL SPRAY 50MCG 16 gm SPRAY BTL BOTH NARES SCH (08:51)
[2022-01-13] MEDS: Magic MouthWash1-BEN/MAAL/LIDO 180 ML BTL SWISH SPIT SCH (22:11)
[2022-01-14] MEDS: Magic MouthWash1-BEN/MAAL/LIDO 180 ML BTL SWISH SPIT SCH ×5 (01:27→20:17)
[2022-01-14] MEDS: Sodium Bicarb 8.4% Vial 50 ML 100 MEQ in D5W 1000 ml BAG 1,000 ML IV SCH ×3 (02:09→16:48)
[2022-01-14] MEDS: NS 0.9% IVPB SCH ×3 (03:31→16:47)
[2022-01-14] MEDS: LEUCOVORIN CALCIUM IVPB SCH ×3 (03:31→16:47)
[2022-01-14 06:18] LABS: ABS Lymphocytes 0.7 10^3/ul (1.0-4.8); ABS Monocytes 0.1 10^3/ul (0-0.8); ABS Neutrophils 2.3 10^3/ul (1.5-7.7); Eosinophil % 0.6 %; Hematocrit 33 % (35-47); Hemoglobin 11.3 g/dL (12.0-16.0); Lymphocyte % 22.7 %; Mean Corpuscular HGB Conc 35 g/dL (31-36); Mean Corpuscular Hemoglobin 32 pg (27-31); Mean Corpuscular Volume 92 fL (80-97); Mean Platelet Volume 6.5 fL (7.4-10.4); Nucleated Red Blood Cells % 0.1; Platelet Count 253 10^3/uL (150-450); Red Blood Count 3.54 10^6 /uL (3.70-4.87); Red Cell Distribution Width 14 % (10-15); White Blood Count 3.2 10^3/uL (3.5-10.8)
[2022-01-14 06:51] LABS: Albumin 3.3 g/dL (3.2-5.2); Albumin/Globulin Ratio 1.5 (1-3); Calcium 9.1 mg/dL (8.6-10.3); Globulin 2.2 g/dL (2-4); Potassium 3.5 mmol/L (3.5-5.0); Total Bilirubin 0.7 mg/dL (0.2-1.0); Total Protein 5.5 g/dL (6.4-8.9); eGFR CKD-EPI 52.1 (>60)
[2022-01-14] MEDS: Polyethylene Glycol 3350 17 GM PACKET PO SCH (10:51)
[2022-01-14] MEDS: Fluticasone NASAL SPRAY 50MCG 16 gm SPRAY BTL BOTH NARES SCH (10:56)
[2022-01-14] MEDS ORDERED: NS 0.9% IVPB SCH (18:00)
[2022-01-14] MEDS ORDERED: LEUCOVORIN CALCIUM IVPB SCH (18:00)
[2022-01-15 08:00] LABS: ABS Lymphocytes 1.2 10^3/ul (1.0-4.8); ABS Monocytes 0.3 10^3/ul (0-0.8); ABS Neutrophils 2.5 10^3/ul (1.5-7.7); Eosinophil % 0.9 %; Hematocrit 30 % (35-47); Hemoglobin 10.6 g/dL (12.0-16.0); Lymphocyte % 29.8 %; Mean Corpuscular HGB Conc 35 g/dL (31-36); Mean Corpuscular Hemoglobin 32 pg (27-31); Mean Corpuscular Volume 92 fL (80-97); Mean Platelet Volume 6.6 fL (7.4-10.4); Platelet Count 211 10^3/uL (150-450); Red Blood Count 3.31 10^6 /uL (3.70-4.87); Red Cell Distribution Width 14 % (10-15)
[2022-01-15 08:39] LABS: Albumin 3.2 g/dL (3.2-5.2); Albumin/Globulin Ratio 1.6 (1-3); Calcium 8.8 mg/dL (8.6-10.3); Potassium 3.6 mmol/L (3.5-5.0); Total Bilirubin 0.6 mg/dL (0.2-1.0); Total Protein 5.2 g/dL (6.4-8.9); eGFR CKD-EPI 59.8 (>60)
[2022-01-15] MEDS: Fluticasone NASAL SPRAY 50MCG 16 gm SPRAY BTL BOTH NARES SCH (09:39)
[2022-01-15] MEDS: Polyethylene Glycol 3350 17 GM PACKET PO SCH (09:39)
[2022-01-15] MEDS: Magic MouthWash1-BEN/MAAL/LIDO 180 ML BTL SWISH SPIT SCH ×4 (09:43→20:59)
[2022-01-15] MEDS ORDERED: TEMOZOLOMIDE 250 MG PO SCH (21:00)
[2022-01-15] MEDS: TEMOZOLOMIDE 250 MG PO SCH (23:05)
[2022-01-16 06:51] LABS: ABS Eosinophils 0.1 10^3/ul (0-0.6); ABS Monocytes 0.3 10^3/ul (0-0.8); ABS Neutrophils 4.1 10^3/ul (1.5-7.7); Eosinophil % 1.1 %; Hematocrit 33 % (35-47); Hemoglobin 11.3 g/dL (12.0-16.0); Lymphocyte % 18.6 %; Mean Corpuscular HGB Conc 34 g/dL (31-36); Mean Corpuscular Hemoglobin 32 pg (27-31); Mean Corpuscular Volume 93 fL (80-97); Platelet Count 199 10^3/uL (150-450); Red Blood Count 3.55 10^6 /uL (3.70-4.87); Red Cell Distribution Width 14 % (10-15); White Blood Count 5.4 10^3/uL (3.5-10.8)
[2022-01-16 07:14] LABS: Albumin 3.4 g/dL (3.2-5.2); Albumin/Globulin Ratio 1.5 (1-3); Calcium 8.8 mg/dL (8.6-10.3); Globulin 2.2 g/dL (2-4); Magnesium 1.8 mg/dL (1.9-2.7); Potassium 3.8 mmol/L (3.5-5.0); Total Bilirubin 0.4 mg/dL (0.2-1.0); Total Protein 5.6 g/dL (6.4-8.9); eGFR CKD-EPI 57.9 (>60)
[2022-01-16] MEDS: Magic MouthWash1-BEN/MAAL/LIDO 180 ML BTL SWISH SPIT SCH ×4 (10:18→20:21)
[2022-01-16] MEDS: Polyethylene Glycol 3350 17 GM PACKET PO SCH (10:19)
[2022-01-16] MEDS: Fluticasone NASAL SPRAY 50MCG 16 gm SPRAY BTL BOTH NARES SCH (10:29)
[2022-01-16] MEDS: TEMOZOLOMIDE 250 MG PO SCH (20:22)
[2022-01-17] MEDS: Magic MouthWash1-BEN/MAAL/LIDO 180 ML BTL SWISH SPIT SCH ×4 (07:46→20:13)
[2022-01-17] MEDS: Polyethylene Glycol 3350 17 GM PACKET PO SCH (09:30)
[2022-01-17] MEDS: Fluticasone NASAL SPRAY 50MCG 16 gm SPRAY BTL BOTH NARES SCH (09:33)
[2022-01-17 11:56] LABS: Calcium 8.8 mg/dL (8.6-10.3); Potassium 3.8 mmol/L (3.5-5.0)
[2022-01-17 12:38] LABS: eGFR CKD-EPI 59.2 (>60)
[2022-01-17] MEDS: TEMOZOLOMIDE 250 MG PO SCH (20:52)
[2022-01-18] MEDS: Polyethylene Glycol 3350 17 GM PACKET PO SCH (08:24)
[2022-01-18] MEDS: Fluticasone NASAL SPRAY 50MCG 16 gm SPRAY BTL BOTH NARES SCH (08:26)
[2022-01-18] MEDS: Magic MouthWash1-BEN/MAAL/LIDO 180 ML BTL SWISH SPIT SCH (08:30)
[2022-01-18 08:31] VITALS: BP 140/87
[2022-01-18] MEDS ORDERED: Sulfamethox/Trimethoprim DS TAB 800/160 mg PO ONE (09:00)
[2022-01-18] MEDS ORDERED: Sulfamethox/Trimethoprim DS TAB 800/160 mg PO SCH (09:00)
== END 2022-01-18 13:10 | disposition home or self-care (01) | DRG 696 ==
LOC: MED 17:05
PROVIDERS: ADMIT Internal Medicine Medical Oncology; ATTEND Internal Medicine Medical Oncology

== ENCOUNTER 2022-01-22 08:48 | Inpatient (IN) ==
[2022-01-22] MEDS ORDERED: HYDROcodone/ACETAMIN 5/325 mg TAB PO PRN (10:19)
[2022-01-22] MEDS: Sodium Bicarb 8.4% Vial 50 ML 100 MEQ in D5W 1000 ml BAG 1,000 ML IV SCH ×2 (14:55→21:27)
[2022-01-23] MEDS: Sodium Bicarb 8.4% Vial 50 ML 100 MEQ in D5W 1000 ml BAG 1,000 ML IV SCH ×6 (01:44→20:44)
[2022-01-23 05:43] LABS: ABS Lymphocytes 0.9 10^3/ul (1.0-4.8); ABS Monocytes 0.5 10^3/ul (0-0.8); ABS Neutrophils 1.8 10^3/ul (1.5-7.7); Eosinophil % 0.6 %; Hematocrit 32 % (35-47); Hemoglobin 11.1 g/dL (12.0-16.0); Mean Corpuscular HGB Conc 34 g/dL (31-36); Mean Corpuscular Hemoglobin 32 pg (27-31); Mean Corpuscular Volume 92 fL (80-97); Mean Platelet Volume 6.4 fL (7.4-10.4); Platelet Count 523 10^3/uL (150-450); Red Blood Count 3.52 10^6 /uL (3.70-4.87); Red Cell Distribution Width 15 % (10-15); White Blood Count 3.2 10^3/uL (3.5-10.8)
[2022-01-23 06:24] LABS: Albumin 3.7 g/dL (3.2-5.2); Calcium 8.9 mg/dL (8.6-10.3); Potassium 3.8 mmol/L (3.5-5.0); Total Bilirubin 0.3 mg/dL (0.2-1.0)
[2022-01-23 06:30] LABS: Albumin/Globulin Ratio 1.5 (1-3); Globulin 2.4 g/dL (2-4); Total Protein 6.1 g/dL (6.4-8.9); eGFR CKD-EPI 75.7 (>60)
[2022-01-23] MEDS: Fluticasone NASAL SPRAY 50MCG 16 gm SPRAY BTL BOTH NARES SCH (09:57)
[2022-01-23] MEDS ORDERED: Palonosetron 0.05 MG/ML 5 ML VIAL IV ONE (10:30)
[2022-01-23] MEDS ORDERED: Dexamethasone IV 4 MG/ML VIAL 1 ml VIAL IV SLOW PU SCH (10:30)
[2022-01-23] MEDS ORDERED: Palonosetron 0.05 MG/ML 5 ML VIAL IV SCH (10:30)
[2022-01-23] MEDS ORDERED: PALONOSETRON HCL 0.05 MG/ML (0.25 MG) SYRINGE (0.05 MG/ML) IV ONE ×2 (10:40→11:00)
[2022-01-23] MEDS ORDERED: METHOTREXATE IVPB SCH (11:00)
[2022-01-23] MEDS ORDERED: NS 0.9% IVPB SCH (11:00)
[2022-01-23] MEDS ORDERED: Valproic Acid IV 1,500 MG in NS 0.9% 100 ml BAG 100 ML IVPB ONE (19:30)
[2022-01-24] MEDS: Sodium Bicarb 8.4% Vial 50 ML 100 MEQ in D5W 1000 ml BAG 1,000 ML IV SCH ×4 (01:12→17:40)
[2022-01-24 06:34] LABS: Albumin 3.3 g/dL (3.2-5.2); Albumin/Globulin Ratio 1.4 (1-3); Calcium 8.4 mg/dL (8.6-10.3); Globulin 2.4 g/dL (2-4); Potassium 3.8 mmol/L (3.5-5.0); Total Bilirubin 0.4 mg/dL (0.2-1.0); Total Protein 5.7 g/dL (6.4-8.9); eGFR CKD-EPI 63.4 (>60)
[2022-01-24 07:14] LABS: ABS Lymphocytes 1.1 10^3/ul (1.0-4.8); ABS Monocytes 0.6 10^3/ul (0-0.8); ABS Neutrophils 2.1 10^3/ul (1.5-7.7); Eosinophil % 0.1 %; Hematocrit 30 % (35-47); Hemoglobin 10.5 g/dL (12.0-16.0); Lymphocyte % 28.3 %; Mean Corpuscular HGB Conc 35 g/dL (31-36); Mean Corpuscular Hemoglobin 32 pg (27-31); Mean Corpuscular Volume 91 fL (80-97); Mean Platelet Volume 6.6 fL (7.4-10.4); Platelet Count 580 10^3/uL (150-450); Red Blood Count 3.29 10^6 /uL (3.70-4.87); Red Cell Distribution Width 15 % (10-15); White Blood Count 3.8 10^3/uL (3.5-10.8)
[2022-01-24] MEDS: Fluticasone NASAL SPRAY 50MCG 16 gm SPRAY BTL BOTH NARES SCH (08:54)
[2022-01-24] MEDS: NS 0.9% IVPB SCH ×2 (11:55→17:48)
[2022-01-24] MEDS: LEUCOVORIN CALCIUM IVPB SCH ×2 (11:55→17:48)
[2022-01-24] MEDS ORDERED: NS 0.9% IVPB ONE (19:00)
[2022-01-24] MEDS ORDERED: LEUCOVORIN CALCIUM IVPB ONE (19:00)
[2022-01-24] MEDS: Metoclopramide 5 MG/ML VIAL (10 mg) IV PRN (23:59)
[2022-01-25] MEDS: Sodium Bicarb 8.4% Vial 50 ML 100 MEQ in D5W 1000 ml BAG 1,000 ML IV SCH ×5 (00:29→17:28)
[2022-01-25] MEDS: LEUCOVORIN CALCIUM IVPB SCH ×4 (00:39→17:28)
[2022-01-25] MEDS: NS 0.9% IVPB SCH ×4 (00:39→17:28)
[2022-01-25 06:13] LABS: ABS Monocytes 0.3 10^3/ul (0-0.8); ABS Neutrophils 1.9 10^3/ul (1.5-7.7); Eosinophil % 0.9 %; Hematocrit 30 % (35-47); Hemoglobin 10.2 g/dL (12.0-16.0); Lymphocyte % 30.1 %; Mean Corpuscular HGB Conc 34 g/dL (31-36); Mean Corpuscular Hemoglobin 31 pg (27-31); Mean Corpuscular Volume 92 fL (80-97); Mean Platelet Volume 6.3 fL (7.4-10.4); Platelet Count 540 10^3/uL (150-450); Red Blood Count 3.25 10^6 /uL (3.70-4.87); Red Cell Distribution Width 15 % (10-15); White Blood Count 3.3 10^3/uL (3.5-10.8)
[2022-01-25 06:29] LABS: Albumin 2.7 g/dL (3.2-5.2); Albumin/Globulin Ratio 1.4 (1-3); Calcium 7.8 mg/dL (8.6-10.3); Potassium 3.2 mmol/L (3.5-5.0); Total Bilirubin 0.4 mg/dL (0.2-1.0); Total Protein 4.7 g/dL (6.4-8.9); eGFR CKD-EPI 35.8 (>60)
[2022-01-25] MEDS: Fluticasone NASAL SPRAY 50MCG 16 gm SPRAY BTL BOTH NARES SCH (08:05)
[2022-01-25] MEDS ORDERED: riTUXimab-ABBS 500 MG, riTUXimab-ABBS 200 MG in NS 0.9% 500 ml BAG 280 ML IVPB SCH (09:00)
[2022-01-25] MEDS ORDERED: diPHENhydraMINE IV 50 MG/ML 1 ml VIAL (BENADRYL) IV PRN (09:36)
[2022-01-25] MEDS ORDERED: methylPREDNISolone 125 mg 2 ML VIAL IV PRN (09:37)
[2022-01-25] MEDS ORDERED: Meperidine 50 mg/ml SYRINGE 1 ml IV PRN (09:39)
[2022-01-25 12:19] LABS: Magnesium 1.7 mg/dL (1.9-2.7)
[2022-01-25] MEDS: Potassium Chlor 20 meq TAB.ER PO SCH (16:54)
[2022-01-26] MEDS: LEUCOVORIN CALCIUM IVPB SCH ×5 (00:24→23:42)
[2022-01-26] MEDS: NS 0.9% IVPB SCH ×5 (00:24→23:42)
[2022-01-26] MEDS: Sodium Bicarb 8.4% Vial 50 ML 100 MEQ in D5W 1000 ml BAG 1,000 ML IV SCH ×6 (00:46→23:42)
[2022-01-26 05:29] LABS: ABS Lymphocytes 0.8 10^3/ul (1.0-4.8); ABS Monocytes 0.1 10^3/ul (0-0.8); ABS Neutrophils 3.1 10^3/ul (1.5-7.7); Eosinophil % 0.6 %; Hematocrit 29 % (35-47); Hemoglobin 9.9 g/dL (12.0-16.0); Lymphocyte % 19.5 %; Mean Corpuscular HGB Conc 34 g/dL (31-36); Mean Corpuscular Hemoglobin 31 pg (27-31); Mean Corpuscular Volume 91 fL (80-97); Mean Platelet Volume 6.3 fL (7.4-10.4); Nucleated Red Blood Cells % 0.1; Platelet Count 510 10^3/uL (150-450); Red Blood Count 3.17 10^6 /uL (3.70-4.87); Red Cell Distribution Width 15 % (10-15)
[2022-01-26 05:38] LABS: Albumin 3.1 g/dL (3.2-5.2); Albumin/Globulin Ratio 1.3 (1-3); Calcium 8.3 mg/dL (8.6-10.3); Globulin 2.3 g/dL (2-4); Potassium 3.6 mmol/L (3.5-5.0); Total Bilirubin 0.5 mg/dL (0.2-1.0); Total Protein 5.4 g/dL (6.4-8.9); eGFR CKD-EPI 23.6 (>60)
[2022-01-26] MEDS: Potassium Chlor 20 meq TAB.ER PO SCH (08:30)
[2022-01-26] MEDS: Fluticasone NASAL SPRAY 50MCG 16 gm SPRAY BTL BOTH NARES SCH (08:31)
[2022-01-26] MEDS: Metoclopramide 5 MG/ML VIAL (10 mg) IV PRN (12:33)
[2022-01-27] MEDS: Sodium Bicarb 8.4% Vial 50 ML 100 MEQ in D5W 1000 ml BAG 1,000 ML IV SCH ×5 (04:41→22:34)
[2022-01-27 05:23] LABS: ABS Lymphocytes 0.9 10^3/ul (1.0-4.8); ABS Monocytes 0.1 10^3/ul (0-0.8); ABS Neutrophils 3.1 10^3/ul (1.5-7.7); Eosinophil % 0.5 %; Hematocrit 28 % (35-47); Hemoglobin 9.4 g/dL (12.0-16.0); Lymphocyte % 21.2 %; Mean Corpuscular HGB Conc 33 g/dL (31-36); Mean Corpuscular Hemoglobin 31 pg (27-31); Mean Corpuscular Volume 93 fL (80-97); Mean Platelet Volume 6.5 fL (7.4-10.4); Platelet Count 470 10^3/uL (150-450); Red Blood Count 3.04 10^6 /uL (3.70-4.87); Red Cell Distribution Width 15 % (10-15); White Blood Count 4.1 10^3/uL (3.5-10.8)
[2022-01-27 05:44] LABS: Albumin 3.2 g/dL (3.2-5.2); Albumin/Globulin Ratio 1.5 (1-3); Calcium 8.2 mg/dL (8.6-10.3); Globulin 2.1 g/dL (2-4); Potassium 3.7 mmol/L (3.5-5.0); Total Bilirubin 0.3 mg/dL (0.2-1.0); Total Protein 5.3 g/dL (6.4-8.9); eGFR CKD-EPI 29.3 (>60)
[2022-01-27] MEDS: NS 0.9% IVPB SCH ×4 (05:52→22:34)
[2022-01-27] MEDS: LEUCOVORIN CALCIUM IVPB SCH ×4 (05:52→22:34)
[2022-01-27] MEDS: Potassium Chlor 20 meq TAB.ER PO SCH (09:23)
[2022-01-27] MEDS: Fluticasone NASAL SPRAY 50MCG 16 gm SPRAY BTL BOTH NARES SCH (09:23)
[2022-01-28] MEDS: Sodium Bicarb 8.4% Vial 50 ML 100 MEQ in D5W 1000 ml BAG 1,000 ML IV SCH ×6 (03:37→23:16)
[2022-01-28] MEDS: LEUCOVORIN CALCIUM IVPB SCH ×4 (06:02→23:16)
[2022-01-28] MEDS: NS 0.9% IVPB SCH ×4 (06:02→23:16)
[2022-01-28 06:25] LABS: ABS Lymphocytes 1.2 10^3/ul (1.0-4.8); ABS Monocytes 0.2 10^3/ul (0-0.8); ABS Neutrophils 2.5 10^3/ul (1.5-7.7); Eosinophil % 0.9 %; Hematocrit 28 % (35-47); Hemoglobin 9.3 g/dL (12.0-16.0); Lymphocyte % 29.2 %; Mean Corpuscular HGB Conc 34 g/dL (31-36); Mean Corpuscular Hemoglobin 31 pg (27-31); Mean Corpuscular Volume 92 fL (80-97); Mean Platelet Volume 6.6 fL (7.4-10.4); Nucleated Red Blood Cells % 0.1; Platelet Count 464 10^3/uL (150-450); Red Blood Count 2.98 10^6 /uL (3.70-4.87); Red Cell Distribution Width 15 % (10-15)
[2022-01-28 06:53] LABS: Albumin/Globulin Ratio 1.3 (1-3); Calcium 8.4 mg/dL (8.6-10.3); Globulin 2.3 g/dL (2-4); Potassium 3.6 mmol/L (3.5-5.0); Total Bilirubin 0.3 mg/dL (0.2-1.0); Total Protein 5.3 g/dL (6.4-8.9); eGFR CKD-EPI 35.8 (>60)
[2022-01-28] MEDS: Potassium Chlor 20 meq TAB.ER PO SCH (08:29)
[2022-01-28] MEDS: Fluticasone NASAL SPRAY 50MCG 16 gm SPRAY BTL BOTH NARES SCH (08:31)
[2022-01-29] MEDS: Sodium Bicarb 8.4% Vial 50 ML 100 MEQ in D5W 1000 ml BAG 1,000 ML IV SCH ×2 (04:13→09:53)
[2022-01-29] MEDS: LEUCOVORIN CALCIUM IVPB SCH ×2 (06:00→13:46)
[2022-01-29] MEDS: NS 0.9% IVPB SCH ×2 (06:00→13:46)
[2022-01-29 08:08] LABS: ABS Lymphocytes 1.4 10^3/ul (1.0-4.8); ABS Monocytes 0.3 10^3/ul (0-0.8); ABS Neutrophils 1.5 10^3/ul (1.5-7.7); Eosinophil % 0.7 %; Hematocrit 28 % (35-47); Hemoglobin 9.4 g/dL (12.0-16.0); Lymphocyte % 42.2 %; Mean Corpuscular HGB Conc 34 g/dL (31-36); Mean Corpuscular Hemoglobin 31 pg (27-31); Mean Corpuscular Volume 91 fL (80-97); Mean Platelet Volume 6.7 fL (7.4-10.4); Nucleated Red Blood Cells % 0.1; Platelet Count 417 10^3/uL (150-450); Red Blood Count 3.03 10^6 /uL (3.70-4.87); Red Cell Distribution Width 15 % (10-15); White Blood Count 3.3 10^3/uL (3.5-10.8)
[2022-01-29 08:24] LABS: Albumin 3.1 g/dL (3.2-5.2); Albumin/Globulin Ratio 1.3 (1-3); Calcium 8.8 mg/dL (8.6-10.3); Globulin 2.4 g/dL (2-4); Potassium 3.9 mmol/L (3.5-5.0); Total Bilirubin 0.3 mg/dL (0.2-1.0); Total Protein 5.5 g/dL (6.4-8.9); eGFR CKD-EPI 39.6 (>60)
[2022-01-29] MEDS: Potassium Chlor 20 meq TAB.ER PO SCH (09:54)
[2022-01-29] MEDS: Fluticasone NASAL SPRAY 50MCG 16 gm SPRAY BTL BOTH NARES SCH (09:55)
[2022-01-29 11:45] VITALS: BP 156/80
== END 2022-01-29 15:10 | disposition home or self-care (01) | DRG 696 ==
LOC: CHOA 08:48 → MED 12:55
PROVIDERS: ADMIT Internal Medicine Hematology & Oncology; ATTEND Internal Medicine Hematology & Oncology

== ENCOUNTER 2022-03-05 08:46 | Inpatient (IN) ==
[~2022-03-05 08:46] MED LIST: Ondansetron 4 mg VIAL 2 MG/ML 2 ml VIAL IV PRN
[2022-03-05] MEDS ORDERED: HYDROcodone/ACETAMIN 5/325 mg TAB PO PRN (09:36)
[2022-03-05] MEDS ORDERED: Senna TAB 8.6 mg TAB PO PRN (09:36)
[2022-03-05] MEDS: Enoxaparin 100 MG/ML SYR SUBCUT SCH (18:27)
[2022-03-05] MEDS: Sodium Bicarb 8.4% Vial 50 ML 100 MEQ in D5W 1000 ml BAG 1,000 ML IV SCH (21:10)
[2022-03-06] MEDS: Sodium Bicarb 8.4% Vial 50 ML 100 MEQ in D5W 1000 ml BAG 1,000 ML IV SCH ×4 (02:13→19:07)
[2022-03-06] MEDS: Enoxaparin 100 MG/ML SYR SUBCUT SCH (05:43)
[2022-03-06 06:30] LABS: Albumin 3.5 g/dL (3.2-5.2); Albumin/Globulin Ratio 1.8 (1-3); Calcium 8.4 mg/dL (8.6-10.3); Total Bilirubin 0.4 mg/dL (0.2-1.0); Total Protein 5.5 g/dL (6.4-8.9); eGFR CKD-EPI 71.7 (>60)
[2022-03-06] MEDS: Fluticasone NASAL SPRAY 50MCG 16 gm SPRAY BTL BOTH NARES SCH (08:48)
[2022-03-06] MEDS ORDERED: Dexamethasone IV 4 MG/ML VIAL 1 ml VIAL IV SLOW PU ONE (13:00)
[2022-03-06] MEDS ORDERED: Palonosetron 0.05 MG/ML 5 ML VIAL IV ONE (13:00)
[2022-03-06] MEDS ORDERED: METHOTREXATE IVPB ONE (13:30)
[2022-03-06] MEDS ORDERED: NS 0.9% IVPB ONE (13:30)
[2022-03-06] MEDS ORDERED: Gadoteridol (CONTRAST) 279.3 MG/ML 10 ML IV ONE (19:56)
[2022-03-07] MEDS: Sodium Bicarb 8.4% Vial 50 ML 100 MEQ in D5W 1000 ml BAG 1,000 ML IV SCH ×6 (00:32→23:14)
[2022-03-07 05:59] LABS: ABS Lymphocytes 0.8 10^3/ul (1.0-4.8); ABS Monocytes 0.4 10^3/ul (0-0.8); ABS Neutrophils 4.5 10^3/ul (1.5-7.7); Hematocrit 23 % (35-47); Hemoglobin 8.1 g/dL (12.0-16.0); Mean Corpuscular HGB Conc 35 g/dL (31-36); Mean Corpuscular Hemoglobin 32 pg (27-31); Mean Corpuscular Volume 93 fL (80-97); Mean Platelet Volume 7.2 fL (7.4-10.4); Platelet Count 396 10^3/uL (150-450); Red Cell Distribution Width 16 % (10-15); White Blood Count 5.7 10^3/uL (3.5-10.8)
[2022-03-07 06:18] LABS: Albumin 3.2 g/dL (3.2-5.2); Albumin/Globulin Ratio 1.6 (1-3); Potassium 3.8 mmol/L (3.5-5.0); Total Bilirubin 0.5 mg/dL (0.2-1.0); Total Protein 5.2 g/dL (6.4-8.9); eGFR CKD-EPI 70.8 (>60)
[2022-03-07 09:30] LABS: Body Fluid Source Cerebral Spinal
[2022-03-07] MEDS: Fluticasone NASAL SPRAY 50MCG 16 gm SPRAY BTL BOTH NARES SCH (09:37)
[2022-03-07 09:50] LABS: CSF Glucose 76 mg/dL (40-70)
[2022-03-07 11:10] LABS: Body Fluid Appearance Clear; Body Fluid Color Colorless; Body Fluid Mono 7 %; Body Fluid Total Cells Counted 14; Body Fluid WBC 1 /mcL
[2022-03-07 12:11] LABS: CSF Tube # 4
[2022-03-07] MEDS: NS 0.9% IVPB SCH ×2 (15:46→20:46)
[2022-03-07] MEDS: LEUCOVORIN CALCIUM IVPB SCH ×2 (15:46→20:46)
[2022-03-08] MEDS: NS 0.9% IVPB SCH ×4 (02:08→19:48)
[2022-03-08] MEDS: LEUCOVORIN CALCIUM IVPB SCH ×4 (02:08→19:48)
[2022-03-08] MEDS: Sodium Bicarb 8.4% Vial 50 ML 100 MEQ in D5W 1000 ml BAG 1,000 ML IV SCH ×5 (03:22→21:17)
[2022-03-08 06:10] LABS: ABS Eosinophils 0.1 10^3/ul (0-0.6); ABS Lymphocytes 1.2 10^3/ul (1.0-4.8); ABS Monocytes 0.4 10^3/ul (0-0.8); ABS Neutrophils 2.4 10^3/ul (1.5-7.7); Eosinophil % 1.7 %; Hematocrit 25 % (35-47); Hemoglobin 8.2 g/dL (12.0-16.0); Lymphocyte % 29.7 %; Mean Corpuscular HGB Conc 33 g/dL (31-36); Mean Corpuscular Hemoglobin 31 pg (27-31); Mean Corpuscular Volume 94 fL (80-97); Mean Platelet Volume 7.2 fL (7.4-10.4); Platelet Count 391 10^3/uL (150-450); Red Blood Count 2.62 10^6 /uL (3.70-4.87); Red Cell Distribution Width 17 % (10-15); White Blood Count 4.1 10^3/uL (3.5-10.8)
[2022-03-08 06:25] LABS: Albumin 3.2 g/dL (3.2-5.2); Albumin/Globulin Ratio 1.6 (1-3); Calcium 8.1 mg/dL (8.6-10.3); Potassium 3.6 mmol/L (3.5-5.0); Total Bilirubin 0.4 mg/dL (0.2-1.0); Total Protein 5.2 g/dL (6.4-8.9); eGFR CKD-EPI 59.8 (>60)
[2022-03-08] MEDS: Fluticasone NASAL SPRAY 50MCG 16 gm SPRAY BTL BOTH NARES SCH (08:44)
[2022-03-08] MEDS ORDERED: NS 0.9% IVPB ONE (12:30)
[2022-03-08] MEDS ORDERED: RITUXIMAB ABBS IVPB ONE (12:30)
[2022-03-09] MEDS: Sodium Bicarb 8.4% Vial 50 ML 100 MEQ in D5W 1000 ml BAG 1,000 ML IV SCH ×7 (01:05→21:21)
[2022-03-09] MEDS: NS 0.9% IVPB SCH ×4 (01:48→19:53)
[2022-03-09] MEDS: LEUCOVORIN CALCIUM IVPB SCH ×4 (01:48→19:53)
[2022-03-09 05:16] LABS: ABS Eosinophils 0.2 10^3/ul (0-0.6); ABS Lymphocytes 1.2 10^3/ul (1.0-4.8); ABS Monocytes 0.1 10^3/ul (0-0.8); ABS Neutrophils 1.2 10^3/ul (1.5-7.7); Eosinophil % 8.5 %; Hematocrit 24 % (35-47); Hemoglobin 8.1 g/dL (12.0-16.0); Lymphocyte % 43.9 %; Mean Corpuscular HGB Conc 33 g/dL (31-36); Mean Corpuscular Hemoglobin 31 pg (27-31); Mean Corpuscular Volume 94 fL (80-97); Mean Platelet Volume 7.1 fL (7.4-10.4); Nucleated Red Blood Cells % 0.1; Platelet Count 407 10^3/uL (150-450); Red Blood Count 2.59 10^6 /uL (3.70-4.87); Red Cell Distribution Width 16 % (10-15); White Blood Count 2.8 10^3/uL (3.5-10.8)
[2022-03-09 05:55] LABS: Albumin 3.1 g/dL (3.2-5.2); Albumin/Globulin Ratio 1.6 (1-3); Calcium 8.3 mg/dL (8.6-10.3); Globulin 1.9 g/dL (2-4); Potassium 4.1 mmol/L (3.5-5.0); Total Bilirubin 0.4 mg/dL (0.2-1.0); eGFR CKD-EPI 64.9 (>60)
[2022-03-09] MEDS: Fluticasone NASAL SPRAY 50MCG 16 gm SPRAY BTL BOTH NARES SCH (09:18)
[2022-03-10] MEDS: LEUCOVORIN CALCIUM IVPB SCH ×4 (01:22→19:56)
[2022-03-10] MEDS: NS 0.9% IVPB SCH ×4 (01:22→19:56)
[2022-03-10] MEDS: Sodium Bicarb 8.4% Vial 50 ML 100 MEQ in D5W 1000 ml BAG 1,000 ML IV SCH ×6 (02:09→23:53)
[2022-03-10 06:16] LABS: Hematocrit 23 % (35-47); Mean Corpuscular HGB Conc 35 g/dL (31-36); Mean Corpuscular Hemoglobin 33 pg (27-31); Mean Corpuscular Volume 94 fL (80-97); Mean Platelet Volume 7.3 fL (7.4-10.4); Platelet Count 405 10^3/uL (150-450); Red Blood Count 2.43 10^6 /uL (3.70-4.87); Red Cell Distribution Width 16 % (10-15); White Blood Count 2.3 10^3/uL (3.5-10.8)
[2022-03-10 06:39] LABS: ABS Eosinophils 0.3 10^3/ul (0-0.6); ABS Lymphocytes 1.1 10^3/ul (1.0-4.8); ABS Monocytes 0.1 10^3/ul (0-0.8); ABS Neutrophils 0.8 10^3/ul (1.5-7.7); Eosinophil % 12.5 %; Nucleated Red Blood Cells % 0.2
[2022-03-10 07:13] LABS: Albumin 3.1 g/dL (3.2-5.2); Albumin/Globulin Ratio 1.6 (1-3); Calcium 8.2 mg/dL (8.6-10.3); Globulin 1.9 g/dL (2-4); Potassium 3.9 mmol/L (3.5-5.0); Total Bilirubin 0.6 mg/dL (0.2-1.0)
[2022-03-10] MEDS: Fluticasone NASAL SPRAY 50MCG 16 gm SPRAY BTL BOTH NARES SCH (08:26)
[2022-03-11] MEDS: LEUCOVORIN CALCIUM IVPB SCH ×2 (02:19→08:25)
[2022-03-11] MEDS: NS 0.9% IVPB SCH ×2 (02:19→08:25)
[2022-03-11] MEDS: Sodium Bicarb 8.4% Vial 50 ML 100 MEQ in D5W 1000 ml BAG 1,000 ML IV SCH ×2 (04:48→08:29)
[2022-03-11 06:48] LABS: Hematocrit 23 % (35-47); Hemoglobin 7.9 g/dL (12.0-16.0); Mean Corpuscular HGB Conc 35 g/dL (31-36); Mean Corpuscular Hemoglobin 33 pg (27-31); Mean Corpuscular Volume 94 fL (80-97); Mean Platelet Volume 7.1 fL (7.4-10.4); Platelet Count 424 10^3/uL (150-450); Red Cell Distribution Width 16 % (10-15); White Blood Count 2.2 10^3/uL (3.5-10.8)
[2022-03-11 07:15] LABS: Albumin 3.2 g/dL (3.2-5.2); Albumin/Globulin Ratio 1.7 (1-3); Calcium 8.5 mg/dL (8.6-10.3); Globulin 1.9 g/dL (2-4); Potassium 3.6 mmol/L (3.5-5.0); Total Bilirubin 0.5 mg/dL (0.2-1.0); Total Protein 5.1 g/dL (6.4-8.9); eGFR CKD-EPI 72.7 (>60)
[2022-03-11 07:42] VITALS: BP 143/73
[2022-03-11] MEDS: Fluticasone NASAL SPRAY 50MCG 16 gm SPRAY BTL BOTH NARES SCH (08:30)
[2022-03-11 08:59] LABS: ABS Eosinophils 0.3 10^3/ul (0-0.6); ABS Lymphocytes 1.2 10^3/ul (1.0-4.8); ABS Monocytes 0.1 10^3/ul (0-0.8); ABS Neutrophils 0.6 10^3/ul (1.5-7.7); Eosinophil % 11.7 %; Lymphocyte % 53.4 %; Nucleated Red Blood Cells % 0.2
[2022-03-11 10:02] LABS: RBC Morphology Normal (Normal)
== END 2022-03-11 11:15 | disposition home or self-care (01) | DRG 696 ==
LOC: CHOA 08:46 → MEDTELE 12:27
PROVIDERS: ADMIT Internal Medicine Hematology & Oncology; ATTEND Internal Medicine Hematology & Oncology

== ENCOUNTER 2022-03-19 08:17 | Inpatient (IN) ==
[~2022-03-19 08:17] MED LIST changes: -Ondansetron 4 mg VIAL 2 MG/ML 2 ml VIAL IV PRN; +Sodium Bicarb 8.4% Vial 50 ML 100 MEQ in D5W 1000 ml BAG 1,000 ML IVPB SCH
[2022-03-19 08:38] LABS: ABS Eosinophils 0.1 10^3/ul (0-0.6); ABS Lymphocytes 1.5 10^3/ul (1.0-4.8); ABS Monocytes 0.4 10^3/ul (0-0.8); ABS Neutrophils 2.4 10^3/ul (1.5-7.7); Hematocrit 28 % (35-47); Hemoglobin 9.6 g/dL (12.0-16.0); Lymphocyte % 32.7 %; Mean Corpuscular HGB Conc 35 g/dL (31-36); Mean Corpuscular Hemoglobin 33 pg (27-31); Mean Corpuscular Volume 96 fL (80-97); Mean Platelet Volume 7.4 fL (7.4-10.4); Platelet Count 273 10^3/uL (150-450); Red Blood Count 2.91 10^6 /uL (3.70-4.87); Red Cell Distribution Width 16 % (10-15); White Blood Count 4.5 10^3/uL (3.5-10.8)
[2022-03-19 08:46] LABS: Albumin 3.9 g/dL (3.2-5.2); Potassium 3.8 mmol/L (3.5-5.0); Total Bilirubin 0.4 mg/dL (0.2-1.0)
[2022-03-19 08:52] LABS: Albumin/Globulin Ratio 1.6 (1-3); Globulin 2.5 g/dL (2-4); Total Protein 6.4 g/dL (6.4-8.9); eGFR CKD-EPI 62.6 (>60)
[2022-03-19] MEDS ORDERED: SODIUM BICARB IV SCH (12:00)
[2022-03-19] MEDS ORDERED: NS 0.9% IV SCH (12:00)
[2022-03-19] MEDS ORDERED: HYDROcodone/ACETAMIN 5/325 mg TAB PO PRN (12:49)
[2022-03-19] MEDS ORDERED: Senna TAB 8.6 mg TAB PO PRN (12:49)
[2022-03-19] MEDS ORDERED: Polyethylene Glycol 3350 17 GM PACKET PO PRN (12:52)
[2022-03-19] MEDS: Sodium Bicarbonate 8.4% IV 100 MEQ in D5W 1000 ML BAG IV SCH ×2 (16:42→21:04)
[2022-03-20] MEDS: Sodium Bicarbonate 8.4% IV 100 MEQ in D5W 1000 ML BAG IV SCH ×5 (01:35→20:42)
[2022-03-20 05:44] LABS: ABS Eosinophils 0.2 10^3/ul (0-0.6); ABS Lymphocytes 1.8 10^3/ul (1.0-4.8); ABS Monocytes 0.5 10^3/ul (0-0.8); ABS Neutrophils 1.5 10^3/ul (1.5-7.7); Eosinophil % 4.1 %; Hematocrit 29 % (35-47); Hemoglobin 9.4 g/dL (12.0-16.0); Lymphocyte % 44.8 %; Mean Corpuscular HGB Conc 33 g/dL (31-36); Mean Corpuscular Hemoglobin 31 pg (27-31); Mean Corpuscular Volume 95 fL (80-97); Mean Platelet Volume 7.5 fL (7.4-10.4); Nucleated Red Blood Cells % 0.1; Platelet Count 258 10^3/uL (150-450); Red Blood Count 3.04 10^6 /uL (3.70-4.87); Red Cell Distribution Width 16 % (10-15); White Blood Count 3.9 10^3/uL (3.5-10.8)
[2022-03-20 05:58] LABS: Albumin 3.6 g/dL (3.2-5.2); Albumin/Globulin Ratio 1.6 (1-3); Calcium 8.6 mg/dL (8.6-10.3); Globulin 2.2 g/dL (2-4); Potassium 3.7 mmol/L (3.5-5.0); Total Bilirubin 0.4 mg/dL (0.2-1.0); Total Protein 5.8 g/dL (6.4-8.9); eGFR CKD-EPI 58.5 (>60)
[2022-03-20] MEDS: Fluticasone NASAL SPRAY 50MCG 16 gm SPRAY BTL BOTH NARES SCH (08:27)
[2022-03-20] MEDS ORDERED: Palonosetron 0.25 MG in NS 0.9% 50 ML 50 ML IVPB ONE (12:00)
[2022-03-20] MEDS ORDERED: METHOTREXATE IVPB ONE (12:00)
[2022-03-20] MEDS ORDERED: NS 0.9% IVPB ONE (12:00)
[2022-03-20] MEDS ORDERED: Dexamethasone IV 4 MG/ML VIAL 1 ml VIAL IV SLOW PU ONE (12:00)
[2022-03-21] MEDS: Sodium Bicarbonate 8.4% IV 100 MEQ in D5W 1000 ML BAG IV SCH ×5 (01:48→21:29)
[2022-03-21 05:59] LABS: ABS Monocytes 0.6 10^3/ul (0-0.8); ABS Neutrophils 5.3 10^3/ul (1.5-7.7); Hematocrit 26 % (35-47); Hemoglobin 8.8 g/dL (12.0-16.0); Lymphocyte % 14.5 %; Mean Corpuscular HGB Conc 34 g/dL (31-36); Mean Corpuscular Hemoglobin 32 pg (27-31); Mean Corpuscular Volume 93 fL (80-97); Mean Platelet Volume 7.5 fL (7.4-10.4); Platelet Count 254 10^3/uL (150-450); Red Blood Count 2.75 10^6 /uL (3.70-4.87); Red Cell Distribution Width 16 % (10-15); White Blood Count 6.9 10^3/uL (3.5-10.8)
[2022-03-21 06:21] LABS: Albumin 3.5 g/dL (3.2-5.2); Albumin/Globulin Ratio 1.7 (1-3); Calcium 8.2 mg/dL (8.6-10.3); Globulin 2.1 g/dL (2-4); Potassium 3.5 mmol/L (3.5-5.0); Total Bilirubin 0.6 mg/dL (0.2-1.0); Total Protein 5.6 g/dL (6.4-8.9); eGFR CKD-EPI 78.9 (>60)
[2022-03-21] MEDS: Fluticasone NASAL SPRAY 50MCG 16 gm SPRAY BTL BOTH NARES SCH (09:38)
[2022-03-21] MEDS: NS 0.9% IVPB SCH ×2 (12:22→18:07)
[2022-03-21] MEDS: LEUCOVORIN CALCIUM IVPB SCH ×2 (12:22→18:07)
[2022-03-22] MEDS: LEUCOVORIN CALCIUM IVPB SCH ×4 (00:08→18:31)
[2022-03-22] MEDS: NS 0.9% IVPB SCH ×4 (00:08→18:31)
[2022-03-22] MEDS: Sodium Bicarbonate 8.4% IV 100 MEQ in D5W 1000 ML BAG IV SCH ×4 (02:20→18:06)
[2022-03-22 05:02] LABS: ABS Eosinophils 0.1 10^3/ul (0-0.6); ABS Lymphocytes 1.7 10^3/ul (1.0-4.8); ABS Monocytes 0.4 10^3/ul (0-0.8); ABS Neutrophils 1.8 10^3/ul (1.5-7.7); Hematocrit 25 % (35-47); Hemoglobin 8.4 g/dL (12.0-16.0); Mean Corpuscular HGB Conc 34 g/dL (31-36); Mean Corpuscular Hemoglobin 32 pg (27-31); Mean Corpuscular Volume 95 fL (80-97); Mean Platelet Volume 7.2 fL (7.4-10.4); Nucleated Red Blood Cells % 0.1; Platelet Count 215 10^3/uL (150-450); Red Blood Count 2.61 10^6 /uL (3.70-4.87); Red Cell Distribution Width 16 % (10-15)
[2022-03-22 05:31] LABS: Albumin 3.1 g/dL (3.2-5.2); Albumin/Globulin Ratio 1.7 (1-3); Calcium 8.1 mg/dL (8.6-10.3); Globulin 1.8 g/dL (2-4); Potassium 3.4 mmol/L (3.5-5.0); Total Bilirubin 0.3 mg/dL (0.2-1.0); Total Protein 4.9 g/dL (6.4-8.9)
[2022-03-22] MEDS: Fluticasone NASAL SPRAY 50MCG 16 gm SPRAY BTL BOTH NARES SCH (09:50)
[2022-03-22] MEDS ORDERED: riTUXimab-ABBS 500 MG, riTUXimab-ABBS 200 MG in NS 0.9% 500 ml BAG 280 ML IVPB ONE (12:00)
[2022-03-23] MEDS: NS 0.9% IVPB SCH ×4 (00:28→17:38)
[2022-03-23] MEDS: LEUCOVORIN CALCIUM IVPB SCH ×4 (00:28→17:38)
[2022-03-23] MEDS: Sodium Bicarbonate 8.4% IV 100 MEQ in D5W 1000 ML BAG IV SCH ×7 (00:43→21:54)
[2022-03-23 06:21] LABS: Albumin 3.4 g/dL (3.2-5.2); Albumin/Globulin Ratio 1.5 (1-3); Calcium 8.6 mg/dL (8.6-10.3); Globulin 2.2 g/dL (2-4); Potassium 3.8 mmol/L (3.5-5.0); Total Bilirubin 0.5 mg/dL (0.2-1.0); Total Protein 5.6 g/dL (6.4-8.9); eGFR CKD-EPI 72.7 (>60)
[2022-03-23] MEDS: Fluticasone NASAL SPRAY 50MCG 16 gm SPRAY BTL BOTH NARES SCH (09:40)
[2022-03-24] MEDS: LEUCOVORIN CALCIUM IVPB SCH ×5 (00:05→23:58)
[2022-03-24] MEDS: NS 0.9% IVPB SCH ×5 (00:05→23:58)
[2022-03-24] MEDS: Sodium Bicarbonate 8.4% IV 100 MEQ in D5W 1000 ML BAG IV SCH ×5 (01:56→21:42)
[2022-03-24 06:45] LABS: Albumin 3.4 g/dL (3.2-5.2); Albumin/Globulin Ratio 1.7 (1-3); Calcium 8.6 mg/dL (8.6-10.3); Potassium 3.8 mmol/L (3.5-5.0); Total Bilirubin 0.7 mg/dL (0.2-1.0); Total Protein 5.4 g/dL (6.4-8.9); eGFR CKD-EPI 75.7 (>60)
[2022-03-24] MEDS: Fluticasone NASAL SPRAY 50MCG 16 gm SPRAY BTL BOTH NARES SCH (09:24)
[2022-03-25] MEDS: Sodium Bicarbonate 8.4% IV 100 MEQ in D5W 1000 ML BAG IV SCH ×3 (02:23→11:19)
[2022-03-25] MEDS: NS 0.9% IVPB SCH ×2 (05:46→12:29)
[2022-03-25] MEDS: LEUCOVORIN CALCIUM IVPB SCH ×2 (05:46→12:29)
[2022-03-25 06:19] LABS: Calcium 8.4 mg/dL (8.6-10.3); Potassium 3.5 mmol/L (3.5-5.0); eGFR CKD-EPI 76.7 (>60)
[2022-03-25] MEDS: Fluticasone NASAL SPRAY 50MCG 16 gm SPRAY BTL BOTH NARES SCH (10:45)
[2022-03-25 12:57] VITALS: BP 147/70
[2022-03-26] MEDS ORDERED: TEMOZOLOMIDE 250 MG PO SCH (09:00)
== END 2022-03-25 15:33 | disposition home or self-care (01) | DRG 696 ==
LOC: CHOA 08:17 → MED 14:00
PROVIDERS: ADMIT Internal Medicine Hematology & Oncology; ATTEND Internal Medicine Hematology & Oncology

== ENCOUNTER 2022-04-02 12:59 | Inpatient (IN) ==
[2022-04-02] MEDS ORDERED: Sodium Bicarb 8.4% Vial 50 ML 100 MEQ in D5W 1000 ml BAG 1,000 ML IV SCH (14:00)
[2022-04-02] MEDS ORDERED: Senna TAB 8.6 mg TAB PO PRN (15:11)
[2022-04-02] MEDS ORDERED: HYDROcodone/ACETAMIN 5/325 mg TAB PO PRN (15:11)
[2022-04-02] MEDS: Sodium Bicarb 8.4% Vial 50 ML 100 MEQ in D5W 1000 ml BAG 1,000 ML IV SCH ×2 (15:27→20:09)
[2022-04-03] MEDS: Sodium Bicarb 8.4% Vial 50 ML 100 MEQ in D5W 1000 ml BAG 1,000 ML IV SCH ×5 (01:29→22:29)
[2022-04-03 06:40] LABS: Albumin 3.2 g/dL (3.2-5.2); Albumin/Globulin Ratio 1.6 (1-3); Calcium 8.3 mg/dL (8.6-10.3); Potassium 3.5 mmol/L (3.5-5.0); Total Bilirubin 0.3 mg/dL (0.2-1.0); Total Protein 5.2 g/dL (6.4-8.9); eGFR CKD-EPI 66.5 (>60)
[2022-04-03 08:16] LABS: ABS Eosinophils 0.2 10^3/ul (0-0.6); ABS Lymphocytes 1.4 10^3/ul (1.0-4.8); ABS Monocytes 0.5 10^3/ul (0-0.8); ABS Neutrophils 1.4 10^3/ul (1.5-7.7); Eosinophil % 4.7 %; Hematocrit 26 % (35-47); Hemoglobin 8.8 g/dL (12.0-16.0); Lymphocyte % 39.2 %; Mean Corpuscular HGB Conc 34 g/dL (31-36); Mean Corpuscular Hemoglobin 32 pg (27-31); Mean Corpuscular Volume 95 fL (80-97); Mean Platelet Volume 7.5 fL (7.4-10.4); Nucleated Red Blood Cells % 0.2; Platelet Count 249 10^3/uL (150-450); Red Blood Count 2.74 10^6 /uL (3.70-4.87); Red Cell Distribution Width 15 % (10-15); White Blood Count 3.6 10^3/uL (3.5-10.8)
[2022-04-03] MEDS: Fluticasone NASAL SPRAY 50MCG 16 gm SPRAY BTL BOTH NARES SCH (09:29)
[2022-04-03] MEDS ORDERED: Palonosetron 0.05 MG/ML 5 ML VIAL IV ONE (11:30)
[2022-04-03] MEDS ORDERED: Dexamethasone IV 4 MG/ML VIAL 1 ml VIAL IV SLOW PU ONE (11:30)
[2022-04-03] MEDS ORDERED: METHOTREXATE IVPB ONE (12:30)
[2022-04-03] MEDS ORDERED: NS 0.9% IVPB ONE (12:30)
[2022-04-04] MEDS: Sodium Bicarb 8.4% Vial 50 ML 100 MEQ in D5W 1000 ml BAG 1,000 ML IV SCH ×5 (02:42→21:28)
[2022-04-04 07:19] LABS: ABS Lymphocytes 0.9 10^3/ul (1.0-4.8); ABS Monocytes 0.5 10^3/ul (0-0.8); ABS Neutrophils 6.3 10^3/ul (1.5-7.7); Eosinophil % 0.1 %; Hematocrit 24 % (35-47); Hemoglobin 8.5 g/dL (12.0-16.0); Mean Corpuscular HGB Conc 35 g/dL (31-36); Mean Corpuscular Hemoglobin 33 pg (27-31); Mean Corpuscular Volume 96 fL (80-97); Mean Platelet Volume 7.8 fL (7.4-10.4); Platelet Count 246 10^3/uL (150-450); Red Blood Count 2.55 10^6 /uL (3.70-4.87); Red Cell Distribution Width 16 % (10-15); White Blood Count 7.7 10^3/uL (3.5-10.8)
[2022-04-04 07:30] LABS: Albumin 3.3 g/dL (3.2-5.2); Albumin/Globulin Ratio 1.7 (1-3); Calcium 8.1 mg/dL (8.6-10.3); Potassium 3.5 mmol/L (3.5-5.0); Total Bilirubin 0.5 mg/dL (0.2-1.0); Total Protein 5.3 g/dL (6.4-8.9); eGFR CKD-EPI 77.8 (>60)
[2022-04-04] MEDS: Fluticasone NASAL SPRAY 50MCG 16 gm SPRAY BTL BOTH NARES SCH (09:06)
[2022-04-04] MEDS: LEUCOVORIN CALCIUM IVPB SCH ×2 (13:24→19:45)
[2022-04-04] MEDS: NS 0.9% IVPB SCH ×2 (13:24→19:45)
[2022-04-05] MEDS: NS 0.9% IVPB SCH ×4 (01:33→19:38)
[2022-04-05] MEDS: LEUCOVORIN CALCIUM IVPB SCH ×4 (01:33→19:38)
[2022-04-05] MEDS: Sodium Bicarb 8.4% Vial 50 ML 100 MEQ in D5W 1000 ml BAG 1,000 ML IV SCH ×6 (01:38→23:57)
[2022-04-05 06:24] LABS: ABS Eosinophils 0.1 10^3/ul (0-0.6); ABS Lymphocytes 1.6 10^3/ul (1.0-4.8); ABS Monocytes 0.4 10^3/ul (0-0.8); Eosinophil % 2.2 %; Hematocrit 25 % (35-47); Hemoglobin 8.7 g/dL (12.0-16.0); Lymphocyte % 40.1 %; Mean Corpuscular HGB Conc 35 g/dL (31-36); Mean Corpuscular Hemoglobin 34 pg (27-31); Mean Corpuscular Volume 97 fL (80-97); Mean Platelet Volume 7.5 fL (7.4-10.4); Platelet Count 249 10^3/uL (150-450); Red Blood Count 2.58 10^6 /uL (3.70-4.87); Red Cell Distribution Width 16 % (10-15); White Blood Count 4.1 10^3/uL (3.5-10.8)
[2022-04-05 07:08] LABS: Albumin 3.1 g/dL (3.2-5.2); Albumin/Globulin Ratio 1.6 (1-3); Globulin 1.9 g/dL (2-4); Potassium 3.5 mmol/L (3.5-5.0); Total Bilirubin 0.4 mg/dL (0.2-1.0); eGFR CKD-EPI 72.7 (>60)
[2022-04-05] MEDS: Fluticasone NASAL SPRAY 50MCG 16 gm SPRAY BTL BOTH NARES SCH (08:49)
[2022-04-05] MEDS ORDERED: NS 0.9% IVPB ONE (10:00)
[2022-04-05] MEDS ORDERED: RITUXIMAB ABBS IVPB ONE (10:00)
[2022-04-06] MEDS: NS 0.9% IVPB SCH ×4 (01:10→19:11)
[2022-04-06] MEDS: LEUCOVORIN CALCIUM IVPB SCH ×4 (01:10→19:11)
[2022-04-06] MEDS: Sodium Bicarb 8.4% Vial 50 ML 100 MEQ in D5W 1000 ml BAG 1,000 ML IV SCH ×4 (04:18→20:07)
[2022-04-06 05:55] LABS: ABS Eosinophils 0.2 10^3/ul (0-0.6); ABS Lymphocytes 1.4 10^3/ul (1.0-4.8); ABS Monocytes 0.1 10^3/ul (0-0.8); ABS Neutrophils 1.1 10^3/ul (1.5-7.7); Eosinophil % 6.5 %; Hematocrit 26 % (35-47); Hemoglobin 8.8 g/dL (12.0-16.0); Lymphocyte % 48.8 %; Mean Corpuscular HGB Conc 33 g/dL (31-36); Mean Corpuscular Hemoglobin 32 pg (27-31); Mean Corpuscular Volume 96 fL (80-97); Mean Platelet Volume 7.2 fL (7.4-10.4); Platelet Count 250 10^3/uL (150-450); Red Blood Count 2.75 10^6 /uL (3.70-4.87); Red Cell Distribution Width 15 % (10-15); White Blood Count 2.9 10^3/uL (3.5-10.8)
[2022-04-06 06:23] LABS: Albumin 3.1 g/dL (3.2-5.2); Albumin/Globulin Ratio 1.6 (1-3); Calcium 8.5 mg/dL (8.6-10.3); Potassium 3.7 mmol/L (3.5-5.0); Total Bilirubin 0.4 mg/dL (0.2-1.0); Total Protein 5.1 g/dL (6.4-8.9)
[2022-04-06] MEDS: Fluticasone NASAL SPRAY 50MCG 16 gm SPRAY BTL BOTH NARES SCH (09:52)
[2022-04-07] MEDS: LEUCOVORIN CALCIUM IVPB SCH ×2 (00:34→07:34)
[2022-04-07] MEDS: NS 0.9% IVPB SCH ×2 (00:34→07:34)
[2022-04-07] MEDS: Sodium Bicarb 8.4% Vial 50 ML 100 MEQ in D5W 1000 ml BAG 1,000 ML IV SCH ×3 (00:34→09:26)
[2022-04-07 05:00] LABS: ABS Eosinophils 0.2 10^3/ul (0-0.6); ABS Lymphocytes 1.3 10^3/ul (1.0-4.8); ABS Monocytes 0.1 10^3/ul (0-0.8); ABS Neutrophils 1.1 10^3/ul (1.5-7.7); Eosinophil % 7.5 %; Hematocrit 25 % (35-47); Hemoglobin 8.6 g/dL (12.0-16.0); Mean Corpuscular HGB Conc 34 g/dL (31-36); Mean Corpuscular Hemoglobin 32 pg (27-31); Mean Corpuscular Volume 95 fL (80-97); Mean Platelet Volume 7.1 fL (7.4-10.4); Platelet Count 258 10^3/uL (150-450); Red Blood Count 2.64 10^6 /uL (3.70-4.87); Red Cell Distribution Width 15 % (10-15); White Blood Count 2.8 10^3/uL (3.5-10.8)
[2022-04-07 05:33] LABS: Albumin 3.2 g/dL (3.2-5.2); Albumin/Globulin Ratio 1.7 (1-3); Calcium 8.4 mg/dL (8.6-10.3); Globulin 1.9 g/dL (2-4); Potassium 3.6 mmol/L (3.5-5.0); Total Bilirubin 0.6 mg/dL (0.2-1.0); Total Protein 5.1 g/dL (6.4-8.9); eGFR CKD-EPI 76.7 (>60)
[2022-04-07 07:48] VITALS: BP 101/72
[2022-04-07] MEDS: Fluticasone NASAL SPRAY 50MCG 16 gm SPRAY BTL BOTH NARES SCH (08:47)
== END 2022-04-07 11:25 | disposition home or self-care (01) | DRG 696 ==
LOC: CHOA 12:59 → MED 13:23
PROVIDERS: ADMIT Internal Medicine Hematology & Oncology; ATTEND Internal Medicine Hematology & Oncology